=== PATIENT | male | born 1980 | race Caucasian/White ===

== ENCOUNTER 2025-04-17 08:34 | Outpatient (REF) | payer BC, SELFPAY ==
--- OUTSIDE RECORDS SUMMARY | 2019-09-20 06:41 | XMS_ITS | Continuity of Care Document ---
Author Organization [facility] Address [address] [place] [address] Phone Care Team Providers Care Account Executive Metal[employer] Name Role Phone Guero Lyman MD Unavailable Unavailable Allergies, Adverse Reactions, Alerts Substance Reaction Status Criticality theophylline Active No Information Medications Medication Instructions Dosage Effective Dates (start - stop) Status Comments metoprolol succinate ER 25 mg tablet,extended release 24 hr take 1 tablet by oral route every day 25 MG - Active Xanax 0.25 mg Tab take 1 tablet (0.25M G) by ORAL route every day as needed for anxiety 0.25 MG - Active Procedures Procedure Date Offic/outpt E&m Estab Low-mod 8 Offic/outpt E&m Estab Low-mod 7 Offic/outpt E&m Estab Low-mod 6 Routine Venipunct/finger/heel 6 Handl/convey Specmn-offic To L 16 Comp [address] Panel Bld Ct; Hg/pltlt Ct Auto/compl 16 Offic/outpt E&m Estab Low-mod 5 Routine Venipunct/finger/heel 5 Handl/convey Specmn-offic To L 15 General Health Panel Offic/outpt E&m Estab Low-mod 4 Routine Venipunct/finger/heel 4 Handl/convey Specmn-offic To L 14 General Health Panel Nov-05-2014 Offic/outpt E&m Estab Low-mod 3 Offic/outpt E&m Estab Low-mod 3 Offic/outpt E&m Estab Low-mod 2 Offic/outpt E&m Estab Low-mod 2 Offic/outpt E&m Estab Low-mod 2 Comp [address] Panel Bld Ct; Hg/pltlt Ct Auto/compl 12 Routine Venipunct/finger/heel 2 Handl/convey Specmn-offic To L 12 Offic/outpt E&m Estab Mod-hi [address]; Hg/pltlt Ct Auto/compl 11 Routine Venipunct/finger/heel 1 Handl/convey Specmn-offic To L 11 Advance Directives Directive Yes / No Effective Date File Name No Information Encounters Encounter Description Practice Location Reason(s) For Visit Diagnoses Date Provider Providers Copied on Encounter [facility], [address] [place] [address], [id number], tel:[phone] [facility] No Information 0 Nura Jack. [address] [place] [address], [id number] , . tel:[phone] [facility], [address] [place] [address], [id number], tel:[phone] [facility] Hereditary hemochromatosi s 8 Joshua Tate. [address] [place] [address], [id number] , [place]. tel:[phone] Offic/outpt E&m Estab Low-mod [facility], [address] [place] [address], [id number], tel:[phone] [facility] (chief complaint) Hereditary hemochromatosi s 8 Joshua Tate. [address] [place] [address], [id number] , . tel:[phone] Referring Provider: Babita Syed [address] [place], [address]. tel:[phone] [facility], [address] [place] [address], [id number], [place] tel:[phone] [facility] History of high blood pressureHeredi tary hemochromatosi s 8 Joshua Tate. [address] [place] [address], [id number] , [place]. tel:[phone] Offic/outpt E&m Estab Low-mod [facility], [address] [place] [address], [id number], [place] tel:[phone] [facility] (chief complaint) Hereditary hemochromatosi sHistory of high blood pressure 7 Joshua Tate. [address] [place] [address], [id number] , [place]. tel:[phone] [facility], [address] [place] [address], [id number], [place] tel:[phone] [facility] Hereditary hemochromatosi s 7 Joshua Tate. [address] [place] [address], [id number] , [place]. tel:[phone] [facility], [address] [place] [address], [id number], [place] tel:[phone] [facility] Hereditary hemochromatosi s 7 Joshua Tate. [address] [place] [address], [id number] , [place]. tel:[phone] Offic/outpt E&m Estab Lowmod [facility], [address] [place] [address], [id number], [place] tel:[phone] [facility] Hemochromatosi s (chief complaint) Hereditary hemochromatosi s 6 Joshua Tate. [address] [place] [address], [id number] , [place]. tel:[phone] [facility], [address] [place] [address], [id number], [place] tel:[phone] [facility] No Information 6 Joshua Tate. [address] [place] [address], [id number] , [place]. tel:[phone] [facility], [address] [place] [address], [id number], [place] tel:[phone] [facility] Hereditary hemochromatosi s 6 Joshua Tate. [address] [place] [address], [id number] , [place]. tel:[phone] Offic/outpt E&m Estab Low-mod [facility], [address] [place] [address], [id number], [place] tel:[phone] [facility] Hemochromatosi s (chief complaint) Hereditary hemochromatosi s 5 Joshua Tate. [address] [place] [address], [id number] , [place]. tel:[phone] Carmen Camelia, [address] [place] [address], [place], [address]. tel:[phone] [facility], [address] [place] [address], [id number], [place] tel:[phone] [facility] No Information 5 Joshua Tate. [address] [place] [address], [id number] , [place]. tel:[phone] [facility], [address] [place] [address], [id number], [place] tel:[phone] [facility] Hereditary hemochromatosi s 0 5 Joshua Tate. [address] [place] [address], [id number] , [place]. tel:[phone] [facility], [address] [place] [address], [id number], [place] tel:[phone] [facility] Hereditary hemochromatosi s Nov-0 3-201 5 Joshua Tate. [address] [place], [place], [id number] , [place]. tel:[phone] Offic/outpt E&m Estab Low-mod [facility], [address] [place] [address], [id number], [place] tel:[phone] [facility] hemochromatosi s (chief complaint) HEREDIT HEMOCHROMATOSI S Nov-0 5 4 Joshua Tate. [address] [place] [address], [id number] , [place]. tel:[phone] [facility], [address] [place] [address], [id number], [place] tel:[phone] [facility] No Information 0 5 4 Joshua Bebeto. [address] [place] [address], [id number] , [place]. tel:[phone] [facility], [address] [place] [address], [id number], [place] tel:[phone] [facility] HEREDIT HEMOCHROMATOSI S 0 201 4 Joshua Bebeto. [address] [place] [address], [id number] , [place]. tel:[phone] [facility], [address] [place] [address], [id number], [place] tel:[phone] [facility] Finding NecHEREDIT HEMOCHROMATOSI S 0 3 Joshua Bebeto. [address] [place] [address], [id number] , [place]. tel:[phone] Offic/outpt E&m Estab Low-mod [facility], [address] [place] [address], [id number], [place] tel:[phone] [facility] hemochromatosi s (chief complaint) HEREDIT HEMOCHROMATOSI S Nov0 6201 3 Joshua Bebeto. [address] [place] [address], [id number] , [place]. tel:[phone] Carmen Denise, [address] [place] [address], [id number]. tel:[phone] [facility], [address] [place] [address], [id number], [place] tel:[phone] [facility] HEREDIT HEMOCHROMATOSI S 3 Joshua Tate. [address] [place] [address], [id number] , [place]. tel:[phone] [facility], [address] [place] [address], [id number], [place] tel:[phone] [facility] HEREDIT HEMOCHROMATOSI S 3 Joshua Tate. [address] [place] [address], [id number] , [place]. tel:[phone] Offic/outpt E&m Estab Low-mod [facility], [address] [place] [address], [id number], [place] tel:[phone] [facility] hemochromatosi s (chief complaint) HEREDIT HEMOCHROMATOSI S 3 Joshua Tate. [address] [place] [address], [id number] , [place]. tel:[phone] Carmen Denise, [address] [place] [address], [place], [address]. tel:[phone] [facility], [address] [place] [address], [id number], tel:[phone] [facility] HEREDIT HEMOCHROMATOSI S 0 3 Joshua Tate. [address] [place] [address], [id number] , [place]. tel:[phone] Offic/outpt E&m Estab Lowmod [facility], [address] [place] [address], [id number], [place] tel:[phone] [facility] hemochromatosi s (chief complaint) HEREDIT HEMOCHROMATOSI S 2 Joshua Bebeto. [address] [place] [address], [id number] , [place]. tel:[phone] Carmen Denise, [address] [place] [address], [place], [address]. tel:[phone] [facility], [address] [place] [address], [id number], [place] tel:[phone] [facility] HEREDIT HEMOCHROMATOSI S 2 Joshua Tate. [address] [place] [address], [id number] , [place]. tel:[phone] Offic/outpt E&m Estab Low-mod [facility], [address] [place] [address], [id number], [place] tel:[phone] [facility] hemochromatosi s (chief complaint) No Information 2 Joshua Tate. [address] [place] [address], [id number] , [place]. tel:[phone] [facility], [address] [place] [address], [id number], [place] tel:[phone] [facility] 2 Joshua Tate. [address] [place] [address], [id number] , [place]. tel:[phone] Offic/outpt E&m Estab Lowmod [facility], [address] [place] [address], [id number], [place] tel:[phone] [facility] hemochromatosi s (chief complaint) No Information 2 Joshua Tate. [address] [place] [address], [id number] , [place]. tel:[phone] [facility], [address] [place] [address], [id number], [place] tel:[phone] [facility] No Information 2 Joshua Tate. [address] [place] [address], [id number] , [place]. tel:[phone] [facility], [address] [place] [address], [id number], [place] tel:[phone] [facility] [place] HEREDIT HEMOCHROMATOSI S Mar-0 2 Joshua Tate. [address] [place] [address], [id number] , [place]. tel:[phone] Offic/outpt E&m Estab Mod-hi 2 [facility], [address] [place] [address], [id number], [place] tel:[phone] [facility] [employer] [place] hemochromatosi s (chief complaint) HEREDIT HEMOCHROMATOSI S 1 Joshua Tate. [address] [place] [address], [id number] , [place]. tel:[phone] Carmen Denise, [address] [place] [address], [id number]. tel:[phone] [facility], [address] [place] [address], [id number], [place] tel:[phone] [facility] No Information 1 Joshua Tate. [address] [place] [address], [id number] , [place]. tel:[phone] Referring Provider: Carmen Denise, [address] [place] [address], [place], [address]. tel:[phone] [facility], [address] [place] [address], [id number], [place] tel:[phone] [facility] elevated ferritin (chief complaint) HEMOCHROMATOSI S NECAsthma W/o Status AsthmHyperlipi demiaHypertens ionRhinitis 1 Joshua Tate. [address] [place] [address], [id number] , [place]. tel:[phone] Carmen Denise, [address] [place] [address], [id number]. tel:[phone] [facility], [address] [place] [address], [id number], [place] tel:[phone] [facility] No Information 1 Joshua Tate. [address] [place] [address], [id number] , . tel:[phone] Family History Family Member Type Diagnosis Age At Onset Mother Problem (finding) hypertension Father Problem (finding) raised blood lipids Father Problem (finding) hypertension Mother Problem (finding) raised blood lipids Payers Payer name Insurance type Covered constitution party ID Kera cleaning[facility]mer [facility] [id number] Social History Type Description Quantity Date Captured Comments Sex Male Smoking Status No Information Chief Complaint And Reason For Visit No Information Reason For Referral Reason For Referral No Information Plan Of Treatment Date Type Action Status Goal Influenza vaccine. Due on due Goal Td vaccine. Due on 18 due Goal Depression screening. Due on due Goal Tdap. Due on due Referral Ordered: Refer to Genetic counseling ordered History Of Present Illness Encounter Date Complaint History Of Prese nt Illness Here for f/u vis it.Feeling well. HH HH (comments) Here for f/u vis it.Feeling well.Labs reviewed. Hemochromatosis Hemochromatosis (comments) Vaughn presents for routine follow-up.He stopped smoking, but has gained some weight.Has been very busy at work.Going [place] to [facility] for the holidays.Thinks he may have missed his last phlebotomy. Hemochromatosis Hemochromatosis (comments) Here today for follow-up visit.No new complaints.Last phlebotomy was over the summer, on a 6 month schedule. Functional Status Date Functional Assessmen t No Information Instructions Date Instruction Additional Infor ha Ferritin normal.Cont iue every 6 month phlebotomy.Target ferritin level ~ 50 ng/mL.f/u with me in 1 year. The patient verbalized an understanding of the plan. Related to Hereditary hemochromatosis Recommend he f/u wit h Dr. Rothman.May need adjustment of his metoprolol. Related to History of high blood pressure He needs to resume e very 6 month phlebotomy.Target ferritin level ~ 50 ng/mL.If today's ferrtin result is higher, he may need to do phlebotomy more frequently.f/u with me in 1 year. The patient verbalized an understanding of the plan. Related to Hereditary hemochromatosis Can continue current schedule of phlebotomy.f/u with me in 1 yr or sooner prn. Related to Hereditary hemochromatosis Doing well with ever y 6 month phlebotomy.Can continue current mgmt plan.f/u with me in 1 yr or sooner prn. Related to Hereditary hemochromatosis Assessments Type Assessment Date No Information Patient Care Teams Name Effective Dates (start - stop) Status Members No Information
--- OUTSIDE RECORDS SUMMARY | 2023-11-16 04:00 | XMS_ITS ---
Author Organization [facility] Address [address] [place] [address] Care Team Providers Care Boxcar Weigher Name Role Phone Mehnaz Carmona Primary Care Provider Encounters Encounter Location Date Provider Diagnosis [facility] [address] [place] [address] [id number] 11/16/2023 Mehnaz Carmona Plan Of Treatment Next Appt Details Provider Name:Mehnaz Carmona, 01/15/2026 10:00:00 AM, [address] [place] [address], [id number], Progress Notes * Vaughn TANGDOB:1980 (44 yo M)Acc No.[id number]:11/16/2023 Complete Physical Patient: Sumeet marylinpramodVaughn amin Provider: Kaye Carmona MD :1980 A ge:42 Y S ex:Male Date:11/16/2023 Address:[address] [id number] * Electronic signature of Nanette Carmona M.D. on 04/17/2025 at 08:55 AM EST Sign off status: Pending * Provider: Kaye Carmona MD Date: 11/16/2023 Generated for Kennethi william/Laura/eTransmitting on: 06/17/2024 08:55 AM EST
--- OUTSIDE RECORDS SUMMARY | 2024-01-02 08:00 | XMS_ITS ---
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 Name Role Phone Mehnaz Carmona Primary Care Provider Allergies Allergen (clinical drug ingredient) Drug/Non Drug Allergy documented on EMR Reaction Allergy Type Onset Date Status theophylline Unknown Drug Allergy Acti ve Results Component Value Reference Range Flag Notes *CBC With Differential/Plate let Reviewed date:01/03/2024 01:05:49 PM Interpretation: Performing Lab:[facility], [address] [place] [address], [place], Phone - [phone], Director - Ama Notes/Report: WBC 8.8 3.4-10.8 x10E3/uL RBC 5.09 4.14-5.80 x10E6/uL Hemoglobin 16.2 13.0-17.7 g/dL Hematocrit 46.4 37.5-51.0 % MCV 91 79-97 fL MCH 31.8 26.6-33.0 pg MCHC 34.9 31.5-35.7 g/dL RDW 12.6 11.6-15.4 % Platelets 323 150-450 x10E3/uL Neutrophils 60 Not Estab. % Lymphs 30 Not Estab. % Monocytes 6 Not Estab. % Eos 3 Not Estab. % Basos 1 Not Estab. % Neutrophils (Absolute) 5.3 1.4-7.0 x10E3/uL Lymphs (Absolute) 2.6 0.7-3.1 x10E3/uL Monocytes(Absolute) 0.6 0.1-0.9 x10E3/uL Eos (Absolute) 0.3 0.0-0.4 x10E3/uL Baso (Absolute) 0.1 0.0-0.2 x10E3/uL Immature Granulocytes 0 Not Estab. % Immature Grans (Abs) 0.0 0.0-0.1 x10E3/uL *Lipid Panel Reviewed date:01/03/2024 01:06:07 PM Interpretation: Performing Lab:[facility], [address] [place] [address], Phone - [phone], Director - MDNenadry Notes/Report: Cholesterol, Total 234 100-199 mg/dL H Triglycerides 135 0-149 mg/dL HDL Cholesterol 57 >39 mg/dL VLDL Cholesterol Jame 24 5-40 mg/dL LDL Chol Calc ([facility]) 153 0-99 mg/dL H *Comp. Metabolic Panel (14) Reviewed date:01/03/2024 01:06:32 PM Interpretation: Performing Lab:[facility] [place], [address] [place] [address], Phone - [phone], Director - WAWiliamy Notes/Report: Glucose 95 70-99 mg/dL BUN 16 6-24 mg/dL Creatinine 0.68 0.76-1.27 mg/dL L eGFR 120 >59 mL/min/1.73 BUN/Creatinine Ratio 24 9-20 H Sodium 142 134-144 mmol/L Potassium 4.3 3.5-5.2 mmol/L Chloride 105 96-106 mmol/L Carbon Dioxide, Total 19 20-29 mmol/L L Calcium 10.6 8.7-10.2 mg/dL H Verified by repeat analysis Protein, Total 7.7 6.0-8.5 g/dL Albumin 5.1 4.1-5.1 g/dL Globulin, Total 2.6 1.5-4.5 g/dL Bilirubin, Total 0.4 0.0-1.2 mg/dL Alkaline Phosphatase 106 44-121 IU/L AST (SGOT) 32 0-40 IU/L ALT (SGPT) 82 0-44 IU/L H *Hemoglobin A1c Reviewed date:01/03/2024 01:05:38 PM Interpretation: Performing Lab:[facility], [address] [place] [address], Phone - [phone], Director - WAWiliamy Notes/Report: Hemoglobin A1c 5.8 4.8-5.6 % H . 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 Alcohol: socially Type: , Frequenc y: ,Years: , Determination: Exercise: yes Caffeine: yes frequency: 3 cup s/day Marital Status: Children: sons: 1 Problems Problem Type SNOMED Code ICD Code Onset Dates Problem Status W/U Status Risk Notes Problem Obstructive sleep apnea syndrome (02082553) JOVAN (obstructive sleep apnea) (G47.33) Active confirmed Problem alanine aminotransferase above reference range (finding) (686971469) Elevated ALT measurement (R74.01) Active confirmed Problem Prediabetes (111970824) Prediabetes (R73.03) Active confirmed Vital Signs Blood pressure systolic 130 mm Hg 01/02/20 24 Blood pressure diastolic 78 mm Hg 024 Height 66 in 01/02/2024 Weight 209 lbs 01/02/2024 BMI 33.73 kg/m2 01/02/2024 PULSE OX: 98A.P Encounters Encounter Location Date Provider Diagnosis [facility] summer [address] [phone] 01/02/2024 Mehnaz Carmona Exercise-induced ast hma J45.990 ; Encounter for general adult medical examination with abnormal findings Z00.01 ; Atypical chest pain R07.89 ; Trigeminy R00.8 ; Snoring R06.83 ; Urinary retention R33.9 ; Hereditary hemochromatosis E83.110 ; Non-seasonal allergic rhinitis due to pollen J30.1 ; Liver cyst K76.89 ; Mixed hyperlipidemia E78.2 ; Erectile disorder due to medical condition in male N52.1 ; KIKI (generalized anxiety disorder) F41.1 ; Sacroiliitis M46.1 ; Obesity (BMI 30-39.9) E66.9 ; Carpal tunnel syndrome on both sides G56.03 ; JOVAN (obstructive sleep apnea) G47.33 ; Elevated ALT measurement R74.01 and Prediabetes R73.03 Assessments Encounter Date Diagnosis (ICD Code) Assessment Notes Treatment Notes Treatment Clinical Notes Section Notes 01/02/2024 Exercise-induced asthma (ICD-10 - J45.990) No lomger taking nebs 01/02/2024 Encounter for general adult medical examination with abnormal findings (ICD-10 - Z00.01) 01/02/2024 Atypical chest pain (ICD-10 - R07.89) EKG done, ordered stress test, ECHO-seen by all normal 01/02/2024 Trigeminy (ICD-10 - R00.8) 01/02/2024 Snoring (ICD-10 - R06.83) referral to sleep studies -received CPAP machine but could not tolerate it. Seen again by , does not want to do CPAP 01/02/2024 Urinary retention (ICD-10 - R33.9) referal to -was seen received Flomax but gave him tachycardia 01/02/2024 Hereditary hemochromatosis (ICD-10 - E83.110) will refer to [place] 01/02/2024 Non-seasonal allergic rhinitis due to pollen (ICD-10 - J30.1) 01/02/2024 Liver cyst (ICD-10 - K76.89) 01/02/2024 Mixed hyperlipidemia (ICD-10 - E78.2) 12/2023 LDL 153 risk 1.4 01/02/2024 Erectile disorder due to medical condition in male (ICD-10 - N52.1) 01/02/2024 KIKI (generalized anxiety disorder) (ICD-10 - F41.1) 01/02/2024 Sacroiliitis (ICD-10 - M46.1) seeening , injection in back q 6 months-- in neck q 12 months 01/02/2024 Obesity (BMI 30-39.9) (ICD-10 - E66.9) 01/02/2024 Carpal tunnel syndrome on both sides (ICD-10 - G56.03) referal hand surgery--no CPT as per surgery, probably coming from cervical area 01/02/2024 JOVAN (obstructive sleep apnea) (ICD-10 - G47.33) not on CPAP 01/02/2024 Elevated ALT measurement (ICD-10 - R74.01) 12/2023 ALT 82 01/02/2024 Prediabetes (ICD-10 - R73.03) 12/2023 a1c 5.8 01/02/2024 Other Tdap 2022 NEXT hem Plan Of Treatment Medication Medication Name Sig Start Date Stop Date Notes Bystolic 10 mg tablet 1 tab(s) orally once a day FLUoxetine Hydrochloride 20 mg capsule TAKE 1 CAPSULE BY MOUTH EVERY DAY sildenafil 100 mg tablet 1 tab(s) orally once a day ZyrTEC 10 mg tablet 1 tab(s) orally once a day Treatment Notes Assessment Notes Exercise-induced asthma No lomger taking nebs Atypical chest pain EKG done, ordered st ress test, ECHO-seen by all normal Snoring referral to sleep [facility] -received CPAP machine but could not tolerate it. Seen again by , does not want to do CPAP Urinary retention referal to ar-was seen received Flomax but gave him tachycardia Hereditary hemochromatosis will refer to [place] Mixed hyperlipidemia 12/2023 LDL 153 risk 1.4 Sacroiliitis seeening , injection in back q 6 months-- in neck q 12 months Carpal tunnel syndrome on both sides ref eral hand surgery--no CPT as per surgery, probably coming from cervical area JOVAN (obstructive sleep apnea) not on CPA P Elevated ALT measurement 12/2023 ALT 82 Prediabetes 12/2023 a1c 5.8 Other Tdap 2022 NEXT hem Next Appt Details Follow Up: prn, Reason: Provider Name:Mehnaz Carmona, 01/15/2026 10:00:00 AM, [address] [place] [address], [phone], History and Physical Notes * HPI (History of Present Illness) Category Sub-Category Detail Notes Category Not es Depression PHQ2 Little interest or pleasure in doing things: No Feeling down depressed or hopeless: No Follow-up 43 y/o male with PMH of Hereditary Hemochromatosis, HTN, HLD-chronic low back came for annual visit. Following issues were discussed today:- / CARPEL TUNNEL SYNDROME - B/L : On his last visit , He complained of occasional pain in his both wrists and arms along with tingling and numbness. He finds it difficult to open the bottle cap, using screw lokie driver too. He had nerve conduction done which seems to be normal as per patient. His numbness now has gone but still have pain. / HEMOCHROMATOSIS: He has history of Hereditary hemochromatosis. He has had complications secondary to that. He was currently not having regular phelobotomies due to COVID. He wants a referal to heavy repairer. / CHRONIC LOW BACK PAIN: Patient has had surgery for his back. He goes for L5/S1 RFA every 6 months. Lower back pain is currently stable. / VENTRICULAR TRIGEMINY: He has history of palpitations and dizziness and was diagnosed to have ventricular trigeminy. He is being treated with Bystolic. He denies any palpitation , dizziness , SOB and chest pain. / JOVAN: He had sleep study and required CPAP, but he has not been using it as he finds it difficult. He was given mouth guard but has not been using. He dont want to use any mask for CPAP but still have episodes of apnea and snoring. / ERECTILE DYSFUNCTION: He had problems with erectile dysfunction and he takes Sildenafil as needed with which he is fine. / URINARY RETENTION: Previously he complained of urinary retention. He was given medication but he left the medication due to palpitation and now dont have any complains of urinary urgency or retention. / PREVENTIVE: Tetanus: 11/11/2022 There are no other aggravating or relieving factors, or symptoms referrable to any other system. Physical Examination Category Sub-Category Detail Notes Section Note s HEENT Head: normocephalic, no scalp lesi ons Eyes: unremarkable Mouth: moist mucus membrane s Face: normal EXTREMITIES Edema: none Cyanosis: no Clubbing: no Pulses: 2+ bilateral Skin: normal Upper Extremities: normal Lower Extremities: normal HEART Rhythm: regular Heart sounds: normal S1S2 Rate: regular ABDOMEN General: soft Tenderness: none Bowel sounds: normoactive NEUROLOGICAL Orientation: alert and oriented x 3 Cognition: normal MUSCULOSKELETAL Wrist: unremarkable Knee: unremarkable Arm: unremarkable SKIN General: warm, moist Rash: none GENERAL General Appearence: no acute distress, ap pears stated age Mental Status: alert and oriented LUNGS Auscultation: CTA bilaterally, no wheezin g/rhonchi/rales Oxygen use: none EYES Conjunctiva: unremarkable Cornea: unremarkable Progress Notes * Vaughn TANGB:1980 (44 yo M)Acc No.[id number]:01/02/2024 Complete Physical Patient: Vaughn Alfred Provider: Kaye Carmona MD :1980 A ge:43 Y S ex:Male Date:01/02/2024 [address] [place] [address] [id number] Subjective: * Chief Complaints: * A nnual * HPI: F ollow-up: 43 y/o male with PMH of Hereditary Hemochromatosis, HTN, HLD-chronic low back came for annual visit. Following issues were discussed today:- / CARPEL TUNNEL SYNDROME - B/L : On his last visit , He complained of occasional pain in his both wrists and arms along with tingling and numbness. He finds it difficult to open the bottle cap, using screw lokie driver too. He had nerve conduction done which seems to be normal as per patient. His numbness now has gone but still have pain. / HEMOCHROMATOSIS: He has history of Hereditary hemochromatosis. He has had complications secondary to that. He was currently not having regular phelobotomies due to COVID. He wants a referal to heavy repairer. / CHRONIC LOW BACK PAIN: Patient has had surgery for his back. He goes for L5/S1 RFA every 6 months. Lower back pain is currently stable. / VENTRICULAR TRIGEMINY: He has history of palpitations and dizziness and was diagnosed to have ventricular trigeminy. He is being treated with Bystolic. He denies any palpitation , dizziness , SOB and chest pain. / JOVAN: He had sleep study and required CPAP, but he has not been using it as he finds it difficult. He was given mouth guard but has not been using. He dont want to use any mask for CPAP but still have episodes of apnea and snoring. / ERECTILE DYSFUNCTION: He had problems with erectile dysfunction and he takes Sildenafil as needed with which he is fine. / URINARY RETENTION: Previously he complained of urinary retention. He was given medication but he left the medication due to palpitation and now dont have any complains of urinary urgency or retention. / PREVENTIVE: Tetanus: 11/11/2022 There are no other aggravating or relieving factors, or symptoms referrable to any other system. D epression: PHQ2 L ittle interest or pleasure in doing things N o,?Feeling down depressed or hopeless N o. * ROS: A LLERGY: no A ngioedema. n o C ough. n o E ar Symptoms. n o P ost-nasal Drip. n o R dannielle. C ONSTITUTIONAL: no F ever. n o W eight Loss. n o W eight Gain. C ARDIOLOGY: no C hest Pain. n o S hortness of Breath. n o?Palpitations. n o D izziness. n o L eg Edema. n o F atigue. ? E NDOCRINOLOGY: no P olyuria. n o P olydypsia. n o P olyphagia. n o W eight Loss. n o W eight Gain. n o F atigue. E NT: no R hinorrhea. n o S ore Throat. n o H oarseness. n o C ough. G ASTROENTEROLOGY: no A bdominal Pain. n o H eartburn. n o D ysphagia. n o D iarrhea. n o C onstipation. M USCULOSKELETAL: Joint Pain B /L wrist and forearm p ain along with numbness, tingling i n hands,. n o J oint Stiffness. n o J oint Swelling. n o C arpal Tunnel Syndrome.? N EUROLOGY: no H eadache. n o V isual Changes. n o D izziness. n o M gina Loss. n o S eizures. O PTHALMOLOGY: no B lurred Vision. n o C hange in Vision. n o?Eye Redness. n o E ye Irritation. n o E ye Drainage. P SYCHOLOGY: no D epression. n o A nxiety. n o M farida.?Sleep Disturbances a pnea and snoring. R ESPIRATORY: no S hortness of Breath. n o C hest Congestion.?no C hest Pain. n o O rthopnea. U ROLOGY: no D ysuria. n o U rinary Frequency. n o U rinary Urgency. n o B lood in Urine. n o U rinary Incontinence. n o N octuria. * Medical History: Hereditary hemochromatosis Allergic rhinitis Hypertension Exercise induced asthma Chronic low back pain Vitamin D deficiency Urinary retention Lumbar fracture Ventricular trigeminy Hyperlipidemia Hepatic cyst * Surgical History: Tonsillectomy 1987 * Hospitalization/Major Diagno stic Procedure: * Family History: F ather: alive. M other: alive. 1 brother(s) . . HTN in brother. HTN, prediabetes in the mother. Emphysema in father. CAD in uncle. * Social History: A lcohol: socially, Type: , Frequency: ,Years: , Determination:. Marital Status: . Children: sons: 1. 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 Exercise: yes. Caffeine: yes, frequency: 3 cups/day. * Medications: T akingBystolic 10 mg tablet 1 tab(s) orally once a day FLUoxetine Hydrochloride 20 mg capsule TAKE 1 CAPSULE BY MOUTH EVERY DAY sildenafil 100 mg tablet 1 tab(s) orally once a day ZyrTEC 10 mg tablet 1 tab(s) orally once a day Medication List reviewed and reconciled with the patientTaking Bystolic 10 mg tablet 1 tab(s) orally once a day Taking FLUoxetine Hydrochloride 20 mg capsule TAKE 1 CAPSULE BY MOUTH EVERY DAY Taking sildenafil 100 mg tablet 1 tab(s) orally once a day Taking ZyrTEC 10 mg tablet 1 tab(s) orally once a day Medication List reviewed and reconciled with the patient * Allergies: t heophylline Objective: * Vitals: R R:16/min, HR:71/min, BP:130/78mm Hg, Ht: 66 in, Wt:209lbs, BMI:33.73Index. PULSE OX: 98 A.P. * Physical Examination: G ENERAL: General Appearence: n o acute distress, appears stated age.?Mental Status: a lert and oriented. S KIN: General: w arm, moist. R dannielle: n one. E YES: Conjunctiva: u nremarkable. C ornea: u nremarkable.? H EENT: Head: n ormocephalic, no scalp lesions. F jean pierre: n ormal. E yes: u nremarkable. M outh: m oist mucus membranes. H EART: Rate: r egular. R hythm: r egular. H eart sounds: n ormal S1S2. L UNGS: Auscultation: C TA bilaterally, no wheezing/rhonchi/rales.?Oxygen use: n one. A BDOMEN: General: s oft. B owel sounds: n ormoactive. T enderness: n one. E XTREMITIES: Upper Extremities: n ormal. L ower Extremities: n ormal. E dayne: n one. S kin: n ormal. P ulses: 2 + bilateral. C lubbing:?no. C yanosis: n o. M USCULOSKELETAL: Wrist: u nremarkable. A rm: u nremarkable. K nee: u nremarkable. N EUROLOGICAL: Orientation: a lert and oriented x 3. C ognition: n ormal. Assessment: * Assessment: 1. E ncounter for general adult medical examination with abnormal findings - Z00.01 (Primary)? 2. E xercise-induced asthma - J45.990 3 . A typical chest pain - R07.89 4 . T rigeminy - R00.8 5 . S noring - R06.83 6. U rinary retention - R33.9 7 . H ereditary hemochromatosis - E83.110 8 . N on-seasonal allergic rhinitis due to pollen - J30.1 ?9. L iver cyst - K76.89 1 0. M ixed hyperlipidemia - E78.2 11. E rectile disorder due to medical condition in male - N52.1 1 2. G AD (generalized anxiety disorder) - F41.1 1 3. S acroiliitis - M46.1 ?14. O besity (BMI 30-39.9) - E66.9 1 5. C arpal tunnel syndrome on both sides - G56.03 1 6. O SA (obstructive sleep apnea) - G47.33 1 7. E levated ALT measurement - R74.01 1 8. P rediabetes - R73.03 ? Plan: * Treatment: Value Reference Range W BC 8.8 3.4-10.8 - x10E3/uL * R BC 5.09 4.14-5.80 - x10E6/uL * H emoglobin 16.2 13.0-17.7 - g/dL * H ematocrit 46.4 37.5-51.0 - % * M CV 91 79-97 - fL * M CH 31.8 26.6-33.0 - pg * M CHC 34.9 31.5-35.7 - g/dL * N eutrophils 60 Not Estab. - % * L ymphs 30 Not Estab. - % * M onocytes 6 Not Estab. - % * E os 3 Not Estab. - % * B asos 1 Not Estab. - % * P latelets 323 150-450 - x10E3/uL * N eutrophils (Absolute) 5.3 1.4-7.0 - x10E3/uL * L ymphs (Absolute) 2.6 0.7-3.1 - x10E3/uL * M onocytes(Absolute) 0.6 0.1-0.9 - x10E3/uL * E os (Absolute) 0.3 0.0-0.4 - x10E3/uL * B aso (Absolute) 0.1 0.0-0.2 - x10E3/uL * R DW 12.6 11.6-15.4 - % * I mmature Grans (Abs) 0.0 0.0-0.1 - x10E3/uL * I mmature Granulocytes 0 Not Estab. - % ?LAB: *Comp. Metabolic Panel (14) (Collection Date & Time - 01/02/2024 02:07 PM)* Value Reference Range C alcium, Serum 10.6 H 8.7-10.2 - mg/dL * G lucose, Serum 95 70-99 - mg/dL * B UN 16 6-24 - mg/dL * P rotein, Total, Serum 7.7 6.0-8.5 - g/dL * A lbumin, Serum 5.1 4.1-5.1 - g/dL * B ilirubin, Total 0.4 0.0-1.2 - mg/dL * A lkaline Phosphatase, Serum 106 44-121 - IU/L * A ST (SGOT) 32 0-40 - IU/L * P otassium, Serum 4.3 3.5-5.2 - mmol/L * S odium, Serum 142 134-144 - mmol/L * C hloride, Serum 105 96-106 - mmol/L * C reatinine, Serum 0.68 L 0.76-1.27 - mg/dL * A LT (SGPT) 82 H 0-44 - IU/L * C arbon Dioxide, Total 19 L 20-29 - mmol/L * B UN/Creatinine Ratio 24 H 9-20 - * G lobulin, Total 2.6 1.5-4.5 - g/dL * e GFR 120 >59 - mL/min/1.73 2.?Exercise-induced asthma? Notes: No lomger taking nebs??3.?Atypical chest pain? Notes:EKG done, ordered stress test, ECHO-seen by all normal?? 4.?Trigeminy? Continue Bystolic tablet, 10 mg, 1 tab(s), orally, once a day.??5.?Snoring? Notes:referral to sleep studies -received CPAP machine but could not tolerate it. Seen again by , does not want to do CPAP??6.?Urinary retention? Notes:referal to -was seen received Flomax but gave him tachycardia?? 7.?Hereditary hemochromatosis? Notes:will refer to [place] ??8.?Mixed hyperlipidemia? Notes: ?12/2023 LDL 153 risk 1.4??9.?Erectile disorder due to medical condition in male? Continue sildenafil tablet, 100 mg, 1 tab(s), orally, once a day.??10.?KIKI (generalized anxiety disorder)? Continue FLUoxetine Hydrochloride capsule, 20 mg, TAKE 1 CAPSULE BY MOUTH EVERY DAY.??11.?Sacroiliitis? Notes: ?seeening , injection in back q 6 months-- in neck q 12 months??12.?Obesity (BMI 30-39.9)?LAB: *Lipid Panel (Collection Date & Time - 01/02/2024 02:07 PM)* Value Reference Range C holesterol, Total 234 H 100-199 - mg/dL * T riglycerides 135 0-149 - mg/dL * H DL Cholesterol 57 >39 - mg/dL * V LDL Cholesterol Jame 24 5-40 - mg/dL * L DL Chol Calc ([facility]) 153 H 0-99 - mg/dL ?LAB: *Hemoglobin A1c (Collection Date & Time - 01/02/2024 02:07 PM)* Value Reference Range H emoglobin A1c 5.8 H 4.8-5.6 - % 13.?Carpal tunnel syndrome on both sides? Notes: ?referal hand surgery--no CPT as per surgery, probably coming from cervical area? 14.?JOVAN (obstructive sleep apnea)? Notes: ?not on CPAP??15.?Elevated ALT measurement? Notes: ?12/2023 ALT 82??16.?Prediabetes? Notes: ?12/2023 a1c 5.8??17.?Others? Continue ZyrTEC tablet, 10 mg, 1 tab(s), orally, once a day.?? Notes: Tdap 2022 NEXT? hem?? * Procedure Codes: * Preventive Medicine: Counseling: S moking P t has never smoked 0 01/02/2024. C are goal follow up plan: B [place] management provided Y es. D iet X . Immunizations: T etnus 2 023. * Follow Up: p rn Billing Information: * Visit Code: 88401 PREV VISIT, EST, AGE 40-64. 95591 OFFICE/OUTPATIENT VISIT, EST. Modifiers: 25 * Electronic signature of Nanette Carmoan M.D. on 04/17/2025 at 08:54 AM EST Sign off status: Pending * Provider: Kaye Carmona MD Date: 0 01/02/2024 Generated for Glenny thomas/Laura/eTransmitting on: 1 06/17/2024 08:54 AM EST
--- OUTSIDE RECORDS SUMMARY | 2025-01-08 05:00 | XMS_ITS ---
Author Organization [facility] Address [address] [place] [id number] Care Team Providers Care Corporate Job Titles Name Role Phone Mehnaz Carmona Primary Care Provider Allergies Allergen (clinical drug ingredient) Drug/Non Drug Allergy documented on EMR Reaction Allergy Type Onset Date Status theophylline Unknown Drug Allergy Acti ve Results Component Value Reference Range Flag Notes *Ferritin, Serum Reviewed date:01/09/2025 08:30:56 AM Interpretation: Performing Lab:[facility], [address] [place] [address], Phone - [phone], Director - MDJodry Notes/Report: Ferritin 558 30-400 ng/mL H *CBC With Differential/Plate let Reviewed date:01/09/2025 08:30:56 AM Interpretation: Performing Lab:[facility], [address] [place] [address], Phone - [phone], Director - MDJodry Notes/Report: WBC 6.3 3.4-10.8 x10E3/uL RBC 4.73 4.14-5.80 x10E6/uL Hemoglobin 15.0 13.0-17.7 g/dL Hematocrit 43.5 37.5-51.0 % MCV 92 79-97 fL MCH 31.7 26.6-33.0 pg MCHC 34.5 31.5-35.7 g/dL RDW 12.8 11.6-15.4 % Platelets 280 150-450 x10E3/uL Neutrophils 54 Not Estab. % Lymphs 34 Not Estab. % Monocytes 7 Not Estab. % Eos 4 Not Estab. % Basos 1 Not Estab. % Neutrophils (Absolute) 3.3 1.4-7.0 x10E3/uL Lymphs (Absolute) 2.1 0.7-3.1 x10E3/uL Monocytes(Absolute) 0.5 0.1-0.9 x10E3/uL Eos (Absolute) 0.3 0.0-0.4 x10E3/uL Baso (Absolute) 0.1 0.0-0.2 x10E3/uL Immature Granulocytes 0 Not Estab. % Immature Grans (Abs) 0.0 0.0-0.1 x10E3/uL *Lipid Panel Reviewed date:01/09/2025 08:30:56 AM Interpretation: Performing Lab:[facility], [facility], Phone - [phone], Director - MDJodry Notes/Report: Cholesterol, Total 214 100-199 mg/dL H Triglycerides 156 0-149 mg/dL H HDL Cholesterol 47 >39 mg/dL VLDL Cholesterol Jame 28 5-40 mg/dL LDL Chol Calc (NIH) 139 0-99 mg/dL H *Comp. Metabolic Panel (14) Reviewed date:01/09/2025 08:30:56 AM Interpretation: Performing Lab:[facility], [facility], Phone - [phone], Director - MDJodry Notes/Report: Glucose 106 70-99 mg/dL H BUN 10 6-24 mg/dL Creatinine 0.86 0.76-1.27 mg/dL eGFR 111 >59 mL/min/1.73 BUN/Creatinine Ratio 12 9-20 Sodium 140 134-144 mmol/L Potassium 4.2 3.5-5.2 mmol/L Chloride 105 96-106 mmol/L Carbon Dioxide, Total 20 20-29 mmol/L Calcium 9.7 8.7-10.2 mg/dL Protein, Total 7.0 6.0-8.5 g/dL Albumin 4.7 4.1-5.1 g/dL Globulin, Total 2.3 1.5-4.5 g/dL Bilirubin, Total 0.4 0.0-1.2 mg/dL Alkaline Phosphatase 96 44-121 IU/L AST (SGOT) 34 0-40 IU/L ALT (SGPT) 74 0-44 IU/L H *Hemoglobin A1c Reviewed date:01/09/2025 08:30:56 AM Interpretation: Performing Lab:[facility], [facility], Phone - [phone], Director - Ama Notes/Report: Hemoglobin A1c 5.6 4.8-5.6 % . Prediabetes: 5.7 - 6.4 Diabetes: >6.4 Glycemic control for adults with diabetes: <7.0 REASON FOR VISIT CPE Medications Medication SIG (Take, Route, Frequency, Duration) Notes Start Date End Date Status sildenafil 100 mg tablet 1 tab(s) orally once a day 01/08/2025 Active Albuterol (Eqv-ProAir HFA) 90 mcg/inh aerosol 2 INH inhaled every 6 hours 01/08/2025 Active FLUoxetine Hydrochloride 20 mg capsule TAKE 1 CAPSULE BY MOUTH EVERY DAY 01/08/2025 Active Sudafed 30 mg tablet 1 tab(s) orally reena ry 6 hours; Duration: 14 days 07/05/2024 Not-Taking Bonjesta 20 mg-20 mg tablet, extended release 1 tab(s) orally once a day (at bedtime); Duration: 30 days 12/05/2024 Not-Taking Bystolic 10 mg tablet 1 tab(s) orally on a day 01/08/2025 Active FLUoxetine Hydrochloride 40 mg capsule 1 caps orally once a day; Duration: 90 days Active Social History Social History Additional Details Category Social Info Options Details Social History 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 Travel ouside [place]: no Alcohol: socially Sexually active: yes Exercise: yes Caffeine: yes frequency: 3 cup s/day Marital Status: Children: sons: 1, pr egnant with second baby Pets: dog, guine pig, chicken, sheep Checked Cholesterol levels yes Seat belt usage Yes Vital Signs Blood pressure systolic 110 mm Hg 01/09/20 25 Blood pressure diastolic 82 mm Hg 025 Height 66 in 01/08/2025 Weight 213.4 lbs 01/08/2025 BMI 34.44 kg/m2 01/08/2025 O2:96LO Encounters Encounter Location Date Provider Diagnosis [facility] [address] [id number] 01/08/2025 Mehnaz Carmona Exercise-induced ast hma J45.990 ; Encounter for annual general medical examination with abnormal findings in adult Z00.01 ; Atypical chest pain R07.89 ; [...] Treatment Notes Treatment Clinical Notes Section Notes 01/08/2025 Exercise-induced asthma (ICD-10 - J45.990) 01/08/2025 Encounter for annual general medical examination with abnormal findings in adult (ICD-10 - Z00.01) 01/08/2025 Atypical chest pain (ICD-10 - R07.89) EKG done, ordered stress test, ECHO-seen by all normal 01/08/2025 Trigeminy (ICD-10 - R00.8) 01/08/2025 Snoring (ICD-10 - R06.83) referral to sleep studies -received CPAP machine but could not tolerate it. Seen again by , does not want to do CPAP 01/08/2025 Urinary retention (ICD-10 - R33.9) referal to as seen received Flomax but gave him tachycardia: stopped taking 01/08/2025 Hereditary hemochromatosis (ICD-10 - E83.110) referred to Aquilino Sousa, he didn't make appointment brandy [place] 558 01/08/2025 Non-seasonal allergic rhinitis due to pollen (ICD-10 - J30.1) 01/08/2025 Liver cyst (ICD-10 - K76.89) 01/08/2025 Mixed hyperlipidemia (ICD-10 - E78.2) 12/2023 LDL 153 risk 1.4 12/2024 LDL 139 01/08/2025 Erectile disorder due to medical condition in male (ICD-10 - N52.1) taking Rarely 01/08/2025 KIKI (generalized anxiety disorder) (ICD-10 - F41.1) 01/08/2025 Sacroiliitis (ICD-10 - M46.1) seeening , injection in back q 6 months-- in neck q 12 months 01/08/2025 Obesity (BMI 30-39.9) (ICD-10 - E66.9) 01/08/2025 Carpal tunnel syndrome on both sides (ICD-10 - G56.03) referal hand surgery--no CPT as per surgery, probably coming from cervical area 01/08/2025 JOVAN (obstructive sleep apnea) (ICD-10 - G47.33) not on CPAP 01/08/2025 Elevated ALT measurement (ICD-10 - R74.01) 12/2023 ALT 82 12/2024 ALT 74 01/08/2025 Prediabetes (ICD-10 - R73.03) 12/2023 a1c 5.8 12/2024 resolved a1c 5.6 01/08/2025 Other Tdap 2022 NEXT hem Plan Of Treatment Medication Medication Name Sig Start Date Stop Date Notes ZyrTEC 10 mg tablet 1 tab(s) orally once a day 01/08/2025 sildenafil 100 mg tablet 1 tab(s) orally once a day 2024 Breo Ellipta 100 mcg-25 mcg/ inh powder 1 inh inhaled once a day; Duration: 30 days 01/08/2025 Albuterol (Eqv-ProAir HFA) 9 0 mcg/inh aerosol 2 INH inhaled every 6 hours 01/08/2025 Flonase 50 mcg/inh spray 1 spray(s) in e ach nostril once a day 01/08/2025 FLUoxetine Hydrochloride 20 mg capsule TAKE 1 CAPSULE BY MOUTH EVERY DAY 01/08/2025 Bystolic 10 mg tablet 1 tab(s) orally once a day Treatment Notes Assessment Notes Atypical chest pain EKG done, ordered stress test, ECHO-seen by all normal Snoring referral to sleep [facility] -received CPAP machine but could not tolerate it. Seen again by , does not want to do CPAP Urinary retention referal to -was seen received Flomax but gave him tachycardia: stopped taking Hereditary hemochromatosis referred to Aquilino Sousa, he didn't make appointment feritin high 558 Mixed hyperlipidemia 12/2023 LDL 153 risk 1.4 12/2024 LDL 139 Erectile disorder due to med ical condition in male taking Rarely Sacroiliitis seeening , injection in back q 6 months-- in neck q 12 months Carpal tunnel syndrome on both sides ref eral hand surgery--no CPT as per surgery, probably coming from cervical area JOVAN (obstructive sleep apnea) not on CPA P Elevated ALT measurement 12/2023 ALT 82 12/2024 ALT 74 Prediabetes 12/2023 a1c 5.8 12/2024 resolved a1c 5.6 Other Tdap 2022 NEXT hem Next Appt Details Follow Up: prn, Reason: Provider Name:Mehnaz Carmona, 01/15/2026 10:00:00 AM, [address] [facility], [place] [address], [place], [place], [phone], History and Physical Notes * HPI (History of Present Illness) Category Sub-Category Detail Notes Category Not es Depression PHQ2 Little interest or pleasure in doing things: No Feeling down depressed or hopeless: No Follow-up 44 y/o male with PMH of Hereditary Hemochromatosis, HTN, HLD-chronic low back came for annual visit. Following issues were discussed today:- / HEMOCHROMATOSIS: He has history of Hereditary hemochromatosis. He has had complications secondary to that. Referral to hemotologist was made but patient could not book an appointment, will try again.He does not have fatigue, no abd pain, no palpitations. Pt reinforced on avoiding iron and vitamin c rich food and to avoid seafood. / PREDIABETES: Educated regarding carb controlled diet. HbA1c in 2023: 5.8 / CARPEL TUNNEL SYNDROME - Resolved, No numbness, No Pain. B/L : He complained of occasional pain in his both wrists and arms along with tingling and numbness. 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 He had nerve conduction done which seems to be normal as per patient. / JOINT PAIN: NECK PAIN AND CHRONIC LOW BACK PAIN- Patient has had surgery for his back. He goes for L5/S1 RFA every 6 months. Lower back pain is currently stable. He also gets injections in his neck for neck pain. / VENTRICULAR TRIGEMINY: No palpitations. He has history of palpitations and dizziness [...] of apnea and snoring. / ERECTILE DYSFUNCTION: Stable, uses Sildenafil very rarely now. He had problems with erectile dysfunction and he takes Sildenafil as needed with which he is fine. / URINARY RETENTION: Previously he complained of urinary retention. He was given medication but he left the medication due to palpitation and now dont have any complains of urinary urgency or retention. / PREVENTIVE: Tetanus: 11/11/2022 SMOKING: smoked very long time ago / There are no other aggravating or relieving factors, or symptoms referrable to any other system. Physical Examination Category Sub-Category Detail Notes Section Note s HEENT Head: normocephalic, no scalp lesi ons Eyes: unremarkable Mouth: moist mucus membrane s Face: normal EXTREMITIES Edema: none Cyanosis: no Clubbing: no Pulses: 2+ bilateral Skin: normal Upper Extremities: normal Lower Extremities: normal BACK Spine: unremarkable ROM: FROM without pain HEART Rhythm: regular Heart sounds: normal S1S2 [...] unremarkable Cornea: unremarkable Progress Notes * Vaughn TANGDOB:1980 (44 yo M)Acc No.[id number]:01/08/2025 Complete Physical Patient: Vaughn Alfred Provider: Kaye Carmona MD :1980 A ge:44 Y S ex:Male Date:01/08/2025 Address:[address] [place], [place] [id number] Subjective: * Chief Complaints: * C PE * HPI: F ollow-up: 44 y/o male with PMH of Hereditary Hemochromatosis, HTN, HLD-chronic low back came for annual visit. Following issues were discussed today:- / HEMOCHROMATOSIS: He has history of Hereditary hemochromatosis. He has had complications secondary to that. Referral to hemotologist was made but patient could not book an appointment, will try again.He does not have fatigue, no abd pain, no palpitations. Pt reinforced on avoiding iron and vitamin c rich food and to avoid seafood. / PREDIABETES: Educated regarding carb controlled diet. HbA1c in 2023: 5.8 / CARPEL TUNNEL SYNDROME - Resolved, No numbness, No Pain. B/L : He complained of occasional pain in his both wrists and arms along with tingling and numbness. 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 He had nerve conduction done which seems to be normal as per patient. / JOINT PAIN: NECK PAIN AND CHRONIC LOW BACK PAIN- Patient has had surgery for his back. He goes for L5/S1 RFA every 6 months. Lower back pain is currently stable. He also gets injections in his neck for neck pain. / VENTRICULAR TRIGEMINY: No palpitations. He has history of palpitations and dizziness [...] of apnea and snoring. / ERECTILE DYSFUNCTION: Stable, uses Sildenafil very rarely now. Dona villatoro had problems with erectile dysfunction and he takes Sildenafil as needed with which he is fine. / URINARY RETENTION: Previously he complained of urinary retention. He was given medication but he left the medication due to palpitation and now dont have any complains of urinary urgency or retention. / PREVENTIVE: Tetanus: 11/11/2022 SMOKING: smoked very long time ago / There are no other aggravating or relieving [...] Pain. n o S hortness of Breath. P alpitations o ccasionally, f eels heart racing. n o D izziness. n o L eg Edema. n o F atigue. E NDOCRINOLOGY: no P olyuria. n o P olydypsia. n o P olyphagia. n o W eight Loss. n o W eight Gain. n o F atigue. G ASTROENTEROLOGY: no A bdominal Pain. n o H eartburn. n o D ysphagia. n o D iarrhea. n o C onstipation. M USCULOSKELETAL: Joint Pain n one. n o J oint Stiffness. n o?Joint Swelling. n o C arpal Tunnel Syndrome. N EUROLOGY: no H eadache. n o [...] the mother. Emphysema in father. CAD in uncle Maternal grandfather had Hereditary Hemochromatosis. * Social History: S moking Status / Tobacco: no . C hecked Cholesterol levels: yes. Seat belt usage: Yes. Alcohol: socially. Marital Status: . Children: sons: 1, with second baby. 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 Exercise: yes. Caffeine: yes, frequency: 3 cups/day. Sexually active: yes. Travel ouside [place]: no. Pets: dog, guine pig, chicken, sheep. * Medications: T akingAlbuterol (Eqv-ProAir HFA) 90 mcg/inh aerosol 2 INH inhaled every 6 hours Bystolic 10 mg tablet 1 tab(s) orally once a day FLUoxetine Hydrochloride 40 mg capsule 1 caps orally once a day sildenafil 100 mg tablet 1 tab(s) orally once a day Taking Albuterol (Eqv-ProAir HFA) 90 mcg/inh aerosol 2 INH inhaled every 6 hours Taking Bystolic 10 mg tablet 1 tab(s) orally once a day Taking FLUoxetine Hydrochloride 40 mg capsule 1 caps orally once a day Taking sildenafil 100 mg tablet 1 tab(s) orally once a day Not-TakingBonjesta 20 mg-20 mg tablet, extended release 1 tab(s) orally once a day (at bedtime) Breo Ellipta 100 mcg-25 mcg/inh powder 1 inh inhaled once a day Flonase 50 mcg/inh spray 1 spray(s) in each nostril once a day Sudafed 30 mg tablet 1 tab(s) orally every 6 hours ZyrTEC 10 mg tablet 1 tab(s) orally once a day Not-Taking Bonjesta 20 mg-20 mg tablet, extended release 1 tab(s) orally once a day (at bedtime) Not-Taking Breo Ellipta 100 mcg-25 mcg/inh powder 1 inh inhaled once a day Not-Taking Flonase 50 mcg/inh spray 1 spray(s) in each nostril once a day Not-Taking Sudafed 30 mg tablet 1 tab(s) orally every 6 hours Not- Taking ZyrTEC 10 mg tablet 1 tab(s) orally once a day * Allergies: t heophylline Objective: * Vitals: R R: 16 /min, HR: 64 /min, BP: 110/82 mm Hg, Ht: 66 in, Wt: 213.4 lbs, BMI:34.44Index. O2:96 LO. * Physical Examination: G ENERAL: General Appearence: [...] S1S2. L UNGS: Auscultation: C TA bilaterally, n o wheezing/rhonchi/rales. O xygen use: n one. A BDOMEN: General: s oft. B owel sounds: n ormoactive. T enderness: n one. B ACK: Spine: u nremarkable. R OM: F ROM without pain.? E XTREMITIES: Upper Extremities: n ormal. L ower Extremities: n ormal. E dayne: n one. S kin: n ormal. P ulses: 2 + bilateral. C lubbing:?no. C yanosis: n o. M USCULOSKELETAL: Wrist: u nremarkable. A rm: u nremarkable. K nee: u nremarkable. N EUROLOGICAL: Orientation: a lert and oriented x 3. C ognition: n ormal. Assessment: * Assessment: 1. E ncounter for annual general medical examination with abnormal findings in adult - Z00.01 (Primary) 2 . E xercise-induced asthma - J45.990 3 . A typical chest pain - R07.89 4 . T rigeminy - R00.8 5 . S noring - R06.83 6 . U rinary retention - R33.9 7 . H ereditary hemochromatosis - E83.110 8 . N on-seasonal allergic rhinitis due to pollen - J30.1? 9. L iver cyst - K76.89 1 0. M ixed hyperlipidemia - E78.2 11. E rectile disorder due to medical condition in male - N52.1 1 2. G AD (generalized anxiety disorder) - F41.1 1 3. S acroiliitis - M46.1? 14. O besity (BMI 30-39.9) - E66.9 1 5. C arpal tunnel syndrome on both sides - G56.03 1 6. O SA (obstructive sleep apnea) - G47.33 ? 1 7. E levated ALT measurement - R74.01 1 8. P rediabetes - R73.03? Plan: * Treatment: Value Reference Range W BC 6.3 3.4-10.8 - x10E3/uL * R BC 4.73 4.14-5.80 - x10E6/uL * H emoglobin 15.0 13.0-17.7 - g/dL * H ematocrit 43.5 37.5-51.0 - % * M CV 92 79-97 - fL * M CH 31.7 26.6-33.0 - pg * M CHC 34.5 31.5-35.7 - g/dL * N eutrophils 54 Not Estab. - % * L ymphs 34 Not Estab. - % * M onocytes 7 Not Estab. - % * E os 4 Not Estab. - % * B asos 1 Not Estab. - % * P latelets 280 150-450 - x10E3/uL * N eutrophils (Absolute) 3.3 1.4-7.0 - x10E3/uL * L ymphs (Absolute) 2.1 0.7-3.1 - x10E3/uL * M onocytes(Absolute) 0.5 0.1-0.9 - x10E3/uL * E os (Absolute) 0.3 0.0-0.4 - x10E3/uL * B aso (Absolute) 0.1 0.0-0.2 - x10E3/uL * R DW 12.8 11.6-15.4 - % * I mmature Grans (Abs) 0.0 0.0-0.1 - x10E3/uL * I mmature Granulocytes 0 Not Estab. - % ?LAB: *Comp. Metabolic Panel (14) (Collection Date & Time - 01/08/2025 10:40 AM)* Value Reference Range C alcium, Serum 9.7 8.7-10.2 - mg/dL * G lucose, Serum 106 H 70-99 - mg/dL * B UN 10 6-24 - mg/dL * P rotein, Total, Serum 7.0 6.0-8.5 - g/dL * A lbumin, Serum 4.7 4.1-5.1 - g/dL * B ilirubin, Total 0.4 0.0-1.2 - mg/dL * A lkaline Phosphatase, Serum 96 44-121 - IU/L * A ST (SGOT) 34 0-40 - IU/L * P otassium, Serum 4.2 3.5-5.2 - mmol/L * S odium, Serum 140 134-144 - mmol/L * C hloride, Serum 105 96-106 - mmol/L * C reatinine, Serum 0.86 0.76-1.27 - mg/dL * A LT (SGPT) 74 H 0-44 - IU/L * C arbon Dioxide, Total 20 20-29 - mmol/L * B UN/Creatinine Ratio 12 9-20 - * G lobulin, Total 2.3 1.5-4.5 - g/dL * e GFR 111 >59 - mL/min/1.73 2.?Atypical chest pain? Notes:EKG done, ordered stress test, ECHO-seen by all normal?? 3.?Trigeminy? Continue Bystolic tablet, 10 mg, 1 tab(s), orally, once a day.??4.?Snoring? Notes:referral to sleep studies -received CPAP machine but could not tolerate it. Seen again by , does not want to do CPAP??5.?Urinary retention? Notes:referal to -was seen received Flomax but gave him tachycardia: stopped taking??6.?Hereditary hemochromatosis?LAB: *Ferritin, Serum (Collection Date & Time - 01/08/2025 10:40 AM)* Value Reference Range F erritin, Serum 558 H 30-400 - ng/mL Notes:referred to Aquilino Sousa, he didn't make appointment feritin high 558??7.?Mixed hyperlipidemia?LAB: *Lipid Panel (Collection Date & Time - 01/08/2025 10:40 AM)* Value Reference Range C holesterol, Total 214 H 100-199 - mg/dL * T riglycerides 156 H 0-149 - mg/dL * H DL Cholesterol 47 >39 - mg/dL * V LDL Cholesterol Jame 28 5-40 - mg/dL * L DL Chol Calc (NIH) 139 H 0-99 - mg/dL Notes: ?12/2023 LDL 153 risk 1.4 12/2024 LDL 139??8.?Erectile disorder due to medical condition in male? Continue sildenafil tablet, 100 mg, 1 tab(s), orally, once a day.?? Notes: taking Rarely??9.?KIKI (generalized anxiety disorder)? Continue FLUoxetine Hydrochloride capsule, 20 mg, TAKE 1 CAPSULE BY MOUTH EVERY DAY.??10.?Sacroiliitis? Notes: ?seeening , injection in back q 6 months-- in neck q 12 months??11.?Carpal tunnel syndrome on both sides? Notes: ?referal hand surgery--no CPT as per surgery, probably coming from cervical area? 12.?JOVAN (obstructive sleep apnea)? Notes: ?not on CPAP??13.?Elevated ALT measurement? Notes: ?12/2023 ALT 82 12/2024 ALT 74??14.?Prediabetes?LAB: *Hemoglobin A1c (Collection Date & Time - 01/08/2025 10:40 AM)* Value Reference Range H emoglobin A1c 5.6 4.8-5.6 - % Notes: ?12/2023 a1c 5.8 12/2024 resolved a1c 5.6??15.?Others? Stop ZyrTEC tablet, 10 mg, 1 tab(s), orally, once a day;?Stop Breo Ellipta powder, 100 mcg-25 mcg/inh, 1 inh, inhaled, once a day, 30 days, 1;?Continue Albuterol (Eqv-ProAir HFA) aerosol, 90 mcg/inh, 2 INH, inhaled, every 6 hours;?Stop Flonase spray, 50 mcg/inh, 1 spray(s), in each nostril, once a day.?? Notes: Tdap 2022 NEXT? hem? * Procedure Codes: * Preventive Medicine: Counseling: Eliza corey on-smoker 0 01/08/2025 He used to smoke a very long time ago. C are goal follow up plan: B VT management provided Y es. D iet X .? Immunizations: T etnus 2 023. * Follow Up: p rn Billing Information: * Visit Code: 13803 PREV VISIT, EST, AGE 40-64. [address]17 OFFICE/OUTPATIENT VISIT, EST. Modifiers: 25 * Electronic signature of Nanette Carmona M.D. on 04/17/2025 at 08:53 AM EST Sign off status: Pending * Provider: Kaye Carmona MD Date: 0 01/08/2025 Generated for Glenny thomas/Laura/eTransmitting on: 1 06/17/2024 08:53 AM EST
--- OUTSIDE RECORDS SUMMARY | 2025-01-19 04:00 | XMS_ITS ---
Author Organization [facility] [employer] [facility] Address [address] [address] Care Team Providers Care Kitchen Assistant Name Role Phone Mehnaz Carmona Primary Care Provider Edward Dodson Unavailable [phone] Migration, Provider Unavailable Unavailable REASON FOR VISIT EMR-Baldo Encounters Encounter Location Date Provider Diagnosis [facility] [address] [address] 01/19/2025 Provider Migration Plan Of Treatment No Information Progress Notes * Angy TANGRenettaOB:[birth year] (44 yo M)Acc No.[id number]:01/19/2025 Patient: Vaughn DUMONT :1980 A ge:44 Y S ex:Male Address:[address] [facility], [place] [address] Subjective: * Chief Complaints: * E MR-Baldo * Medical History: * Surgical History: * Hospitalization/Major Diagno stic Procedure: * Medications: Objective: * Vitals: * Physical Examination: Assessment: Plan: * Treatment: * Procedure Codes: * * Date:
--- OUTSIDE RECORDS SUMMARY | 2025-01-20 04:00 | XMS_ITS ---
Author Organization [facility] [employer] [facility] Address [address] [address] Care Team Providers Care Ld Teacher Name Role Phone Mehnaz Carmona Primary Care Provider UnavailEdward Angelo Unavailable [phone] Migration, Provider Unavailable Unavailable Allergies Allergen (clinical drug ingredient) Drug/Non Drug Allergy documented on EMR Reaction Allergy Type Onset Date Status theophylline Theophylline Unknown Drug Allergy A ctive REASON FOR VISIT EMR-Baldo Encounters Encounter Location Date Provider Diagnosis [facility] [employer] [address] [address] 01/20/2025 Provider Migration Plan Of Treatment No Information Progress Notes * Angy TANGRenettaOB:[birth year] (44 yo M)Acc No.[id number]:01/20/2025 Patient: Vaughn DUMONT :1980 A ge:44 Y S ex:Male Address:[address] [facility], [place] [address] Subjective: * Chief Complaints: * E MR-Baldo * Medical History: * Surgical History: * Hospitalization/Major Diagno stic Procedure: * Medications: * Allergies: T heophylline: Allergy Objective: * Vitals: * Physical Examination: Assessment: Plan: * Treatment: * Procedure Codes: * * Date:
--- OUTSIDE RECORDS SUMMARY | 2025-04-17 08:54 | XMS_ITS | Clinical Summary ---
Author Organization [facility] Address [address] [place] [address] Care Team Providers Care Math Instructor Name Role Phone Mehnaz Carmona MD Primary Care Provider [phone] Allergies Active Allergy Reactions Criticality Noted Date Comments Seasonal 11/19/2019 Theophylline 11/19/2019 Medications ALBUTEROL SULFATE (PROAIR HFA) 108 (90 BASE) MCG/ACT Aero Soln None Entered 04/11/2018 Active Nebivolol HCl (BYSTOLIC) 10 MG Tab None Entered 11/04/2018 Active Sildenafil Citrate 100 MG Tab None Entered 12/12/2017 Active Fluoxetine HCl (PROzac) 20 MG capsule Take 40 mg by mouth 1 (one) time each day. Active Active Problems Problem Noted Date Diagnosed Date Sacroiliitis 01/05/2023 Radicular pain PT 07/16/2020 Cervical spondylosis PT 07/16/2020 Radicular pain in right arm PT 07/16/2020 Encounters Date Type Department Care Team Description 04/02/2025 4:15 PM EDT Office Visit [facility] [address] [place] [address] Jose Adan MD Facet hypertrophy of lumbar region (Primary Dx) from Last 3 Months Social History Tobacco Use Types Packs/Day Years Used Date Smoking Tobacco: Never Assessed Passive Smoke Exposure: Past Tobacco Cessation:Counseling Given: Not Answered Intimate Partner Violence Answer Date R ecorded Fear of Current or Ex-Partner Not on file Emotionally Abused Not on file 01/21/2023 Physically Abused Not on file 01/21/2023 Sexually Abused Not on file 01/21/2023 Feel Safe at Home Not on file 01/21/2023 Sex and Gender Information Value Date Recorded Sex Assigned at Not on file Legal Sex Male 8:55 AM EDT Gender Identity Not on file Sexual Orientation Not on file Last Filed Vital Signs Vital Sign Reading Time Taken Comments Blood Pressure 136/98 10/30/2024 10:58 AM EDT Pulse 64 10/30/2024 10:58 AM EDT Temperature 36.8 C (98.2 F) 10/30/2024 10:58 AM EDT Respiratory Rate 16 09/26/2020 8:09 AM EDT Oxygen Saturation 95% 10/30/2024 10:58 AM EDT Inhaled Oxygen Concentration - - Weight 88.5 kg (195 lb) 10/22/2020 10:22 AM EDT Height - - Body Mass Index - - Plan of Treatment Health Maintenance Due Date Last Done Comments Hepatitis C Screening 1982 DTaP/Tdap/Td (1 - Tdap) 2000 Hep B (1 of 3 - 19+ 3-dose series) 2001 COVID-19 Vaccine ( - 2024-2 6 season) 2025 Influenza (#1) 2025 Zoster (Shingrix) (1 of 2) 2032 HPV Vaccine (No Doses Required) Completed Hep A Aged Out No longer eligi ble based on patient's age to complete this topic Hib Aged Out No longer eligi ble based on patient's age to complete this topic Meningococcal ACWY Aged Out No longer eligible based on patient's age to complete this topic Pneumococcal Aged Out No longer eligi ble based on patient's age to complete this topic Insurance BCBS FEE FOR SERVICE PPO Care Teams Math Instructor Relationship Specialty Start Date End Date Mehnaz Carmona MD [facility] [address] [place] [phone] PCP - General Internal Medicine 09/20/18
--- OUTSIDE RECORDS SUMMARY | 2025-04-17 08:54 | XMS_ITS | Patient Health Record ---
Author Organization [facility] Address [address] [place] [address] Care Team Providers Care Promotions Producer Name Role Phone Mehnaz Carmona Primary Care Provider [phone] Jose Savage Unavailable [phone] Allergies Allergen (clinical drug ingredient) Drug/Non Drug Allergy documented on EMR Reaction Allergy Type Onset Date Status theophylline Unknown Drug Allergy Acti ve Results Component Value Reference Range Flag Notes *Ferritin, Serum Reviewed date:01/09/2025 08:30:56 AM Interpretation: Performing Lab:[facility], [address] [place] [address], Phone - [phone], Director - MDJodry Notes/Report: Ferritin 558 30-400 ng/mL H *CBC With Differential/Plate let Reviewed date:01/09/2025 08:30:56 AM Interpretation: Performing Lab:[facility], [address] [place] [address], Phone - [phone], Director - MDJodry Notes/Report: WBC 6.3 3.4-10.8 [...] Panel Reviewed date:01/09/2025 08:30:56 AM Interpretation: Performing Lab:[facility], [address] [place] [address], Phone - [phone], Director - MDWiliamy Notes/Report: Cholesterol, Total 214 100-199 mg/dL H Triglycerides 156 0-149 mg/dL H HDL Cholesterol 47 >39 mg/dL VLDL Cholesterol Jame 28 5-40 mg/dL LDL Chol Calc (NIH) 139 0-99 mg/dL H *Comp. Metabolic Panel (14) Reviewed date:01/09/2025 08:30:56 AM Interpretation: Performing Lab:[facility], [address] [place] [address], Phone - [phone], Director - MDJoy Notes/Report: Glucose 106 70-99 mg/dL H BUN [...] A1c Reviewed date:01/09/2025 08:30:56 AM Interpretation: Performing Lab:[facility], [address] [place] [address], Phone - [phone], Director - Ama Notes/Report: Hemoglobin A1c 5.6 4.8-5.6 % . Prediabetes: 5.7 - 6.4 Diabetes: >6.4 Glycemic control for adults with diabetes: <7.0 CXR AP LAT WITH FLUORO Reviewed date:07/04/2024 04:22:56 PM Interpretation: Performing Lab: Notes/Report: See Below For Report CHEST RADIOGRAPH, 2 VIEWS. Reason For Referral Reason Hemochromatosis Referral Organization [facility] Referring Provider First Name Mehnaz Referring Provider Last Name Mathew Referring Provider Speciality Internal M edicine Referred Provider Aron Caraballo Referred Provider Specialty Hematology/O ncology General Notes Lizy Garza 2024 02:16:01 PM EDT > Please call the patient to schedule. Thank you. Referral Priority Routine Reason Hemochromatosis Referral Organization [facility] Referring Provider First Name Mehnaz Referring Provider Last Name Mathew Referring Provider Speciality Internal edicine Referred Provider Lars Rolle Referred Provider Specialty Hematology/O ncology General Notes Lizy Garza 12/26 09:36:14 AM EDT > Auth# [id number]. [facility] PPO [id number]. Please call the patient to schedule. Thank you., Lizy Garza 01/10/2025 08:48:25 AM EDT > faxed again Referral Priority Routine Medications Medication SIG (Take, Route, Frequency, Duration) Notes Start Date End Date Status FLUoxetine Hydrochloride 20 mg capsule TAKE 1 CAPSULE BY MOUTH EVERY DAY 01/08/2025 Active Bystolic 10 mg tablet 1 tab(s) orally on ce a day; Duration: 30 days Active Sudafed 30 mg tablet 1 tab(s) orally reena ry 6 hours; Duration: 14 days 07/05/2024 Not-Taking sildenafil 100 mg tablet 1 tab(s) orally once a day 01/08/2025 Active Bonjesta 20 mg-20 mg tablet, extended release 1 tab(s) orally once a day (at bedtime); Duration: 30 days 12/05/2024 Not-Taking Albuterol (Eqv-ProAir HFA) 90 mcg/inh aerosol 2 INH inhaled every 6 hours 01/08/2025 Active FLUoxetine Hydrochloride 40 mg capsule 1 caps orally once a day; Duration: 7 days Active Social History Social History Additional Details Category Social Info Options Details Social History 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 Travel ouside [place]: no Alcohol: socially Sexually active: yes Exercise: yes Caffeine: yes frequency: 3 cup s/day Marital Status: Children: sons: 1, pr egnant with second baby Pets: dog, guine pig, chicken, sheep Checked Cholesterol levels yes Seat belt usage Yes Problems Problem Type SNOMED Code ICD Code Onset Dates Problem Status W/U Status Risk Notes Problem Mixed hyperlipidemia (339212066) Mixed hyperlipidemia (E78.2) Active confirmed Problem Hereditary hemochromatosis (77520453) Hereditary hemochromatosis (E83.110) Active confirmed Problem Snoring (92146645) Snoring (R06.83) Active conf irmed Problem Obesity (849821806) Obesity (BMI 30-39.9) (E66.9) Active confirmed Problem Secondary erectile dysfunction (disorder) (330174129) Erectile disorder due to medical condition in male (N52.1) Active confirmed Problem Liver cyst (89578343) Liver cyst (K76.89) Active confirmed Problem Exercise-induced asthma (98508529) Exercise-induced asthma (J45.990) Active confirmed Problem Obstructive sleep apnea syndrome (21146193) JOVAN (obstructive sleep apnea) (G47.33) Active confirmed Problem Sacroiliitis (45905749) Sacroiliitis (M46.1) Active confirmed Problem Atypical chest pain (538220046) Atypical chest pain (R07.89) Active confirmed Problem Generalized anxiety disorder (80020827) KIKI (generalized anxiety disorder) (F41.1) Active confirmed Problem Urinary retention (072761805) Urinary retention (R33.9) Active confirmed Problem Prediabetes (556494114) Prediabetes (R73.03) Active confirmed Problem Carpal tunnel syndrome (63175892) Carpal tunnel syndrome on both sides (G56.03) Active confirmed Problem Allergic rhinitis caused by pollen (40473323) Non-seasonal allergic rhinitis due to pollen (J30.1) Active confirmed Problem Trigeminy (94523668) Trigeminy (R00.8) Active confirmed Problem alanine aminotransferase above reference range (finding) (407968013) Elevated ALT measurement (R74.01) Active confirmed Vital Signs Blood pressure diastolic 82 mm Hg 01/08/2025 O2:96 LO Height 66 in 01/08/2025 O2:96 LO Blood pressure systolic 110 mm Hg 01/08/2025 O2:96 LO Weight 213.4 lbs 01/08/2025 O2:96 LO BMI 34.44 kg/m2 01/08/2025 O2:96 LO Encounters Encounter Location Date Provider Diagnosis [facility] [address] [place] [id number] 01/08/2025 Imola Mathew Exercise-induced ast hma J45.990 ; Encounter for [...] Elevated ALT measurement R74.01 and Prediabetes R73.03 [facility] [address] [place] [address] [id number] 07/04/2024 Imola Mathew Exercise-induced ast hma J45.990 ; Acute pneumonia J18.9 ; Atypical chest pain R07.89 ; Trigeminy [...] Elevated ALT measurement R74.01 and Prediabetes R73.03 [facility] [address] [place] [address] [place] [id number] 07/04/2024 Imola Mathew [facility] [address] [id number] 08/02/2024 Imola Mathew Trigeminy R00.8 [facility] [address] [id number] 01/08/2025 Imola Mathew [facility] [address] [id number] 01/09/2025 Imola Mathew [facility] [address] [id number] 06/26/2024 Imola Mathew [facility] [address] [id number] 07/03/2024 Imola Mathew [facility] [address] [id number] 07/04/2024 Imola Mathew [facility] [address] [id number] 07/04/2024 Imola Mathew [facility] [address] [id number] 07/04/2024 Imola Mathew [facility] [address] [id number] 07/04/2024 Imola Mathew [facility] [address] [id number] 07/05/2024 Imola Mathew [facility] [address] [id number] 07/05/2024 Imola Mathew [facility] [address] [id number] 07/21/2024 Imola Mathew [facility] [address] [id number] 07/21/2024 Imola Mathew [facility] [address] [id number] 09/13/2024 Imola Mathew Trigeminy R00.8 [facility] [address] [id number] 09/13/2024 Imola Mathew [facility] [address] [id number] 09/19/2024 Imola Mathew [facility] [address] [id number] 09/20/2024 Imola Mathew [facility] [address] [id number] 09/20/2024 Imola Mathew [facility] [address] [id number] 09/20/2024 Imola Mathew [facility] [address] [id number] 09/20/2024 Imola Mathew [facility] [address] [id number] 09/25/2024 Imola Mathew Racheliny R00.8 [facility] [address] [id number] 10/11/2024 Imola Mathew [facility] [address] [id number] 10/11/2024 Imola Mathew [facility] [address] [id number] 10/11/2024 Imola Mathew [facility] [address] [id number] 11/08/2024 Imola Mathew [facility] [address] [id number] 11/11/2024 Immartha Savage MD [address] [id number] 12/02/2024 Jose Savage [facility] [address] [id number] 12/02/2024 Imola Mathew [facility] [address] [id number] 12/03/2024 Imola Mathew [facility] [address] [id number] 12/03/2024 Imola Mathew [facility] [address] [id number] 12/03/2024 Imola Mathew [facility] [address] [id number] 12/03/2024 Imola Mathew [facility] [address] [id number] 12/04/2024 Imola Mathew [facility] [address] [id number] 12/05/2024 Imola Mathew [facility] [address] [address] [place], [place] [id number] 12/05/2024 [facility] [address] [place] [address] [id number] 12/05/2024 Mehnaz Savage MD [address] [id number] 12/12/2024 [facility] [address] [place] [address] [id number] 12/18/2024 [facility] [address] [place] [address] [id number] 03/13/2025 Mehnaz Carmona Assessments Encounter Date Diagnosis (ICD Code) Assessment Notes Treatment Notes Treatment Clinical Notes Section Notes 07/04/2024 Exercise-induced asthma (ICD-10 - J45.990) 08/02/2024 Trigeminy (ICD-10 - R00.8) 09/13/2024 Trigeminy (ICD-10 - R00.8) 09/25/2024 Trigeminy (ICD-10 - R00.8) 07/04/2024 Acute pneumonia (ICD-10 - J18.9) finished 2 antibiotic ccourse, will check xray again 01/08/2025 Exercise-induced asthma (ICD-10 - J45.990) 01/08/2025 Encounter for annual general medical examination with abnormal findings in adult (ICD-10 - Z00.01) 01/08/2025 Atypical chest pain (ICD-10 - R07.89) EKG done, ordered stress test, ECHO-seen by all normal 07/04/2024 Atypical chest pain (ICD-10 - R07.89) EKG done, ordered stress test, ECHO-seen by all normal 07/04/2024 Trigeminy (ICD-10 - R00.8) 01/08/2025 Trigeminy (ICD-10 - R00.8) 01/08/2025 Snoring (ICD-10 - R06.83) referral to sleep studies -received CPAP machine but could not tolerate it. Seen again by , does not want to do CPAP 07/04/2024 Snoring (ICD-10 - R06.83) referral to sleep studies -received CPAP machine but could not tolerate it. Seen again by , does not want to do CPAP 01/08/2025 Urinary retention (ICD-10 - R33.9) referal to -was seen received Flomax but gave him tachycardia: stopped taking 07/04/2024 Urinary retention (ICD-10 - R33.9) referal to -was seen received Flomax but gave him tachycardia 07/04/2024 Hereditary hemochromatosis (ICD-10 - E83.110) will refer to [facility] 01/08/2025 Hereditary hemochromatosis (ICD-10 - E83.110) referred to Aquilino Sousa, he didn't make appointment [facility] 558 07/04/2024 Non-seasonal allergic rhinitis due to pollen (ICD-10 - J30.1) 01/08/2025 Non-seasonal allergic rhinitis due to pollen (ICD-10 - J30.1) 07/04/2024 Liver cyst (ICD-10 - K76.89) 01/08/2025 Liver cyst (ICD-10 - K76.89) 07/04/2024 Mixed hyperlipidemia (ICD-10 - E78.2) 12/2023 LDL 153 risk 1.4 01/08/2025 Mixed hyperlipidemia (ICD-10 - E78.2) 12/2023 LDL 153 risk 1.4 12/2024 LDL 139 07/04/2024 Erectile disorder due to medical condition in male (ICD-10 - N52.1) 01/08/2025 Erectile disorder due to medical condition in male (ICD-10 - N52.1) taking Rarely 01/08/2025 KIKI (generalized anxiety disorder) (ICD-10 - F41.1) 07/04/2024 KIKI (generalized anxiety disorder) (ICD-10 - F41.1) 07/04/2024 Sacroiliitis (ICD-10 - M46.1) seeening , injection in back q 6 months-- in neck q 12 months 01/08/2025 Sacroiliitis (ICD-10 - M46.1) seeening , injection in back q 6 months-- in neck q 12 months 07/04/2024 Obesity (BMI 30-39.9) (ICD-10 - E66.9) 01/08/2025 Obesity (BMI 30-39.9) (ICD-10 - E66.9) 01/08/2025 Carpal tunnel syndrome on both sides (ICD-10 - G56.03) referal hand surgery--no CPT as per surgery, probably coming from cervical area 07/04/2024 Carpal tunnel syndrome on both sides (ICD-10 - G56.03) referal hand surgery--no CPT as per surgery, probably coming from cervical area 07/04/2024 JOVAN (obstructive sleep apnea) (ICD-10 - G47.33) not on CPAP 01/08/2025 JOVAN (obstructive sleep apnea) (ICD-10 - G47.33) not on CPAP 07/04/2024 Elevated ALT measurement (ICD-10 - R74.01) 12/2023 ALT 82 01/08/2025 Elevated ALT measurement (ICD-10 - R74.01) 12/2023 ALT 82 12/2024 ALT 74 01/08/2025 Prediabetes (ICD-10 - R73.03) 12/2023 a1c 5.8 12/2024 resolved a1c 5.6 07/04/2024 Prediabetes (ICD-10 - R73.03) 12/2023 a1c 5.8 01/08/2025 Other Tdap 2022 NEXT hem 07/04/2024 Other Tdap 2022 NEXT hem Plan Of Treatment Pending Test Test Name Order Date MRI : Lumbosacral Spines w/o contrast Echo - 2D color flow and dop pler with 2D color flow and dopplar w/contrast if clinically indicated per protocol 09/19/2018 *Strep Cx if Indicated 05/14/2021 Exercise Treadmill Test 09/19/2018 RAD: CHEST 2 VIEW AP/PA AND LAT 07/04/19 25 EGD 07/11/2020 *STAT 05/14/2021 Ultrasound Abdomen Limited 07/11/2020 Next Appt Details Provider Name:Mehnaz Carmona, 01/15/2026 10:00:00 AM, [address] [facility], [place] [address], [place], [place], [id number], Insurance Providers Payer Name Payer Address Payer Phone Subscriber Number Group Number Insured Name Patient Relationship to Insured Coverage Start Date Coverage End Date BCBS ENDER BCBS PPO [address] [place] [address] [id number] Vaughn Tang Self - patient is the insured Medical (General) History Medical History History ICD Code Hereditary hemochromatosis Allergic rhinitis Hypertension Exercise induced asthma Chronic low back pain Vitamin D deficiency Urinary retention Lumbar fracture Ventricular trigeminy Hyperlipidemia Hepatic cyst Surgical History Surgery Date(Month/Year) Tonsillectomy 1987 LASIK 2008
--- OUTSIDE RECORDS SUMMARY | 2025-04-17 08:54 | XMS_ITS | Clinical Summary ---
Author Organization [facility] Address [address] [place] [address] Care Team Providers Care Hot Die Press Feeder Name Role Phone Pcp, No Primary Care Provider [phone] Allergies Active Allergy Reactions Criticality Noted Date Comments Felodipine Other (See Comments) 09/08/2023 Pollen Extracts 11/19/2019 Theophylline 03/17/2019 Medications albuterol (PROAIR HFA) 90 mcg/actuation inhaler ProAir HFA 90 mcg/actuatio n aerosol inhaler Active sildenafiL (VIAGRA) 100 MG tablet Take by mouth. 12/12/2017 Active FLUoxetine (PROzac) 40 MG capsule Take 1 tablet by mouth 06/13/2019 Active nebivoloL (BYSTOLIC) 10 MG tablet Take 1 tablet (10 mg total) by mouth 06/13/2016 Active Active Problems Problem Noted Date Diagnosed Date Class 1 obesity 09/08/2023 09/08/2023 Sacroiliitis 01/05/2023 09/08/2023 Cervical spondylosis 07/16/2020 09/08/2023 Radicular pain 07/16/2020 09/08/2023 Social History Tobacco Use Types Packs/Day Years Used Date Smoking Tobacco: Former Cigarettes 0 Q uit: 2013 Passive Smoke Exposure: Never Smokeless Tobacco: Never Tobacco Cessation:Counseling Given: Not Answered Sex and Gender Information Value Date Recorded Sex Assigned at Not on file Legal Sex Male 1:34 PM EDT Gender Identity Not on file Sexual Orientation Not on file Last Filed Vital Signs Vital Sign Reading Time Taken Comments Blood Pressure 123/89 09/21/2023 8:41 AM EDT Pulse 72 09/21/2023 8:41 AM EDT Temperature 36.2 C (97.2 F) 09/21/2023 8:41 AM EDT Respiratory Rate 18 09/21/2023 8:41 AM EDT Oxygen Saturation 97% 09/21/2023 8:41 AM EDT Inhaled Oxygen Concentration - - Weight 86.2 kg (190 lb) 07/02/2023 3:02 PM EST Height 167.6 cm (5' 6 ) 07/02/2023 3:02 PM EST Body Mass Index 30.67 07/02/2023 3:02 PM EST Plan of Treatment Not on file Medical Devices Not on file Insurance [facility] Care Teams Hot Die Press Feeder Relationship Specialty Start Date End Date Pcp, Cristela PCP - General Family Medicine 05/12/23
--- OUTSIDE RECORDS SUMMARY | 2025-04-17 08:54 | XMS_ITS | Encounter Summary ---
Author Organization [facility] Address [address] [place] [address] Care Team Providers Care Painter Plate Name Role Phone Mehnaz Carmona MD Primary Care Provider [phone] Reason for Visit * Reason Comments Insurance Question called pt but mailbo x is full need to update ins Encounter Details Date Type Department Care Team ([facility] Contact Info) Description 10/14/2022 Telephone Central Registration [address] [place] [address] Jose Adan MD [address] [place] [address] Insurance Question (/called pt but mailbox is full need to update ins) Social History Tobacco Use Types Packs/Day Years Used Date Smoking Tobacco: Never Assessed Sex and Gender Information Value Date Recorded Sex Assigned at Not on file Legal Sex Male 8:55 AM EDT Gender Identity Not on file Sexual Orientation Not on file documented as of this encounter Miscellaneous Notes * Telephone Encounter - Babita Nieto - 10/14/2022 11:39 AM EDT called pt but mailbox is full need to update ins documented in this encounter Plan of Treatment Not on file documented as of this encounter Visit Diagnoses Not on filedocumented in this encounter Care Teams Painter Plate Relationship Specialty Start Date End Date Mehnaz Carmona MD [facility] [address] [phone] PCP - General Internal Medicine 09/20/18 documented as of this encounter
--- OUTSIDE RECORDS SUMMARY | 2025-04-17 08:55 | XMS_ITS | Clinical Summary ---
Author Organization [facility] Address [address] [place] [address] Phone Care Team Providers Care Bead Filler Name Role Phone Mehnaz Carmona MD Primary Care Provider Allergies Active Allergy Reactions Criticality Noted Date Comments Theophylline 11/19/2019 Medications FLUoxetine (PROzac) 20 mg capsuleIndications: Hereditary hemochromatosis (CMS/HCC V24) Take 2 capsules (40 mg total) by mouth daily. Active Bystolic 10 mg tabletIndications:H ereditary hemochromatosis (CMS/HCC V24) Take by mouth. 7 Active Encounters Date Type Department Care Team Description 03/29/[address] [facility] Hematology Oncology [address] [place] [phone] Aleisha Correia MD 03/29/[address] [facility] Infusion Center [address] [place] [phone] Aleisha Correia MD 03/27/2025 10:15 AM EDT Office Visit [facility] Hematology Oncology [address] [place] [phone] Aleisha Correia MD Hereditary hemochromatosis ([facility]/HCC V24) (Primary Dx) 03/13/2025 8:30 AM EDT Office Visit [facility] Hematology Oncology [address] [place] [phone] Aleisha Correia MD Hereditary hemochromatosis (CMS/HCC V24) (Primary Dx) from Last 3 Months Social History Tobacco Use Types Packs/Day Years Used Date Smoking Tobacco: Never Assessed Sex and Gender Information Value Date Recorded Sex Assigned at Male 01/17/2025 11:05 AM EDT Legal Sex Male 10:59 AM EDT Gender Identity Male 01/17/2025 11:05 AM EDT Sexual Orientation Straight 01/17/2025 11 :05 AM EDT Last Filed Vital Signs Vital Sign Reading Time Taken Comments Blood Pressure 154/92 03/27/2025 10:07 AM EDT Pulse 60 03/27/2025 10:07 AM EDT Temperature 36 C (96.8 F) 03/27/2025 10:07 AM EDT Respiratory Rate - - Oxygen Saturation 97% 03/27/2025 10:07 AM EDT Inhaled Oxygen Concentration - - Weight 98.4 kg (217 lb) 03/27/2025 10:07 AM EDT Height 167.6 cm (5' 6 ) 03/13/2025 8:40 AM EDT Body Mass Index 35.02 03/13/2025 8:40 AM EDT Plan of Treatment Upcoming Encounters Date Type Department Care Team (Late st Contact Info) Description 08/22/2025 8:30 AM EDT Office Visit [facility] Hematology Oncology [address] [place] [phone] Aleisha Correia MD [address] [place] [address] Health Maintenance Due Date Last Done Comments DTaP,Tdap,and Td Vaccines (1 - Tdap) 2001 Hepatitis B Vaccines (1 of 3 - 19+ 3-dose series) 2001 HPV Vaccines (1 - 3-dose SCD M series) 2009 Depression Screening 06/13/2024 Cholesterol Screening (Lipid Panel) 01/17/2025 HIV Screening 01/17/2025 Hepatitis C Screening 01/17/2025 Social Influencers of Health Screening 01/17/2025 COVID-19 Vaccine (1 - 2023-2 5 season) 2025 Influenza Vaccine (#1) 2025 RSV Immunization Adult Patie nts (1 - 1-dose 75+ series) 2057 HIB Vaccines Aged Out No longer eligi ble based on patient's age to complete this topic Hepatitis A Vaccines Aged Out No long er eligible based on patient's age to complete this topic IPV Vaccines Aged Out No longer eligi ble based on patient's age to complete this topic MMR Vaccines Aged Out No longer eligi ble based on patient's age to complete this topic Meningococcal ACWY Vaccine Aged Out N o longer eligible based on patient's age to complete this topic Meningococcal B Vaccine Aged Out No l onger eligible based on patient's age to complete this topic Pneumococcal Vaccine: Pediat rics (0 to 5 Years) and At-Risk Patients (6 to 49 Years) Aged Out No longer eligible b ased on patient's age to complete this topic RSV Immunization Patients Un davon 20 months Aged Out No longer eligible b ased on patient's age to complete this topic Varicella Vaccines Aged Out No longer eligible based on patient's age to complete this topic Procedures Procedure Name Priority Date/Time Associated Diagnosis Comments CBC WITH AUTO DIFFERENTIAL Routine 03/13/2025 9:11 AM EDT Hereditary hemochromatosis (CMS/HCC V24) HEMOCHROMATOSIS MUTATION Routine 03/13/2025 9:11 AM EDT Hereditary hemochromatosis (CMS/HCC V24) HEPATIC FUNCTION PANEL Routine 9:11 AM EDT Hereditary hemochromatosis (CMS/HCC V24) IRON AND TIBC Routine 03/13/2025 9:11 AM EDT Hereditary hemochromatosis (CMS/HCC V24) FERRITIN Routine 03/13/2025 9:11 AM EDT Hereditary hemochromatosis (CMS/HCC V24) CBC AND DIFFERENTIAL Routine 03/13/2025 9:11 AM EDT Hereditary hemochromatosis (CMS/HCC V24) from Last 3 Months Results * CBC auto differential (03/13/2025 9:11 AM EDT) Pathologist [facility] WBC 5.8 4.8 - 10.8 K/mcL LAB HEMETOLOGY METHOD 03/13/2025 11:46 AM [facility] RBC 5.00 4.50 - 5.50 M/mcL LAB HEMETOLOGY METHOD 03/13/2025 11:46 AM [facility] Hemoglobin 15.7 13.5 - 17.5 g/dL LAB HEMETOLOGY METHOD 03/13/2025 11:46 AM [facility] Hematocrit 44.3 42.0 - 54.0 % LAB HEMETOLOGY METHOD 03/13/2025 11:46 AM [facility] MCV 88.6 79.0 - 98.0 FL LAB HEMETOLOGY METHOD 03/13/2025 11:46 AM [facility] MCH 31.4 27.0 - 32.0 pcg LAB HEMETOLOGY METHOD 03/13/2025 11:46 AM [facility] MCHC 35.4 32.0 - 37.0 g/dL LAB HEMETOLOGY METHOD 03/13/2025 11:46 AM [facility] RDW 12.6 11.0 - 15.0 % LAB HEMETOLOGY METHOD 03/13/2025 11:46 AM [facility] Platelets 291 130 - 400 K/[facility] LAB HEMETOLOGY METHOD 03/13/2025 11:46 AM [facility] MPV 9.5 7.0 - 11.0 FL LAB HEMETOLOGY METHOD 03/13/2025 11:46 AM [facility] NRBC 0.0 <1.0 % LAB HEMETOLOGY METHOD 03/13/2025 11:46 AM [facility] NRBC Absolute 0.00 <0.10 K/mcL LAB HEMETOLOGY METHOD 03/13/2025 11:46 AM [facility] Neutrophils Relative 54.7 % LAB HEMETOLOGY METHOD 03/13/2025 11:46 AM [facility] Lymphocytes Relative 31.8 % LAB HEMETOLOGY METHOD 03/13/2025 11:46 AM [facility] Monocytes Relative 7.1 % LAB HEMETOLOGY METHOD 03/13/2025 11:46 AM [facility] Eosinophils Relative 5.0 % LAB HEMETOLOGY METHOD 03/13/2025 11:46 AM [facility] Basophils Relative 1.2 % LAB HEMETOLOGY METHOD 03/13/2025 11:46 AM [facility] Immature Granulocytes Relative 0.2 % LAB HEMETOLOGY METHOD 03/13/2025 11:46 AM [facility] Neutrophils Absolute 3.14 1.50 - 7.00 K/mcL LAB HEMETOLOGY METHOD 03/13/2025 11:46 AM [facility] Lymphocytes Absolute 1.83 1.00 - 5.00 K/mcL LAB HEMETOLOGY METHOD 03/13/2025 11:46 AM [facility] Monocytes Absolute 0.41 0.20 - 1.00 K/mcL LAB HEMETOLOGY METHOD 03/13/2025 11:46 AM [facility] Eosinophils Absolute 0.29 0.00 - 0.50 K/mcL LAB HEMETOLOGY METHOD 03/13/2025 11:46 AM [facility] Basophils Absolute 0.07 0.00 - 0.20 K/mcL LAB HEMETOLOGY METHOD 03/13/2025 11:46 AM [facility] Immature Granulocytes Absolute 0.01 0.00 - 0.03 K/mcL LAB HEMETOLOGY METHOD 03/13/2025 11:46 AM [facility] Blood Venous blood specimen / Unknown Venipuncture / Unknown 03/13/2025 9:11 AM EDT 03/13/2025 11:34 AM EDT Aleisha Correia MD LAB BLOOD ORDERABLES Final R esult [facility] [address] [place] [address], * Hemochromatosis mutation (03/13/2025 9:11 AM EDT) [facility] Hereditary Hemochromatosis See Below 03/21/2025 1:41 PM EDT [facility] Comment: RESULT: HETEROZYGOUS FOR THE C282Y AND H63D PATHOGENIC VARIANTS Interpretation: One copy each of the C282Y and H63D pathogenic variants in HFE gene was detected. Approximately 3%-8% of individuals with a biochemical diagnosis of hereditary hemochromatosis (HH) have this genotype. Therefore, this result is consistent with a diagnosis of HH in an individual with clinical evidence of HH. However, this genotype does not predict a diagnosis of HH in an asymptomatic individual, as only 0.5% to 2% of individuals with this genotype will develop symptoms or clinical evidence of this disorder. Disease diagnosis can only be made by demonstration of elevated iron stores. Genetic counseling is recommended to discuss the potential clinical implications of this result. Laboratory results and submitted clinical information reviewed by Brisa Mendez, Ph.D., [facility]. DETAILED ASSAY INFORMATION: Hereditary hemochromatosis (HH) is an autosomal recessive disorder of iron metabolism that can result in iron overload and potential organ failure. It is one of the most common genetic disorders in individuals of - ancestry, with an estimated carrier frequency of 10%. HH is caused by pathogenic variants in the HFE gene. Most individuals with HH (60-90%) are homozygous for the C282Y pathogenic variant. A smaller percentage of affected individuals are either compound heterozygous for the C282Y and H63D pathogenic variants (3%-8%), or homozygous for the H63D pathogenic variant (approximately 1%). METHODOLOGY: This assay detects two pathogenic variants in the HFE gene, C282Y (NM 813643.2: c.845G>A, p.Hsu510Ikn) and H63D (NM 151683.2: c.187C>G, p.Igd86Phu), that are commonly associated with HH. These variants are detected by multiplex-polymerase chain reaction (PCR) amplification, followed by restriction enzyme digestion and capillary electrophoresis. LIMITATIONS: This assay does not detect other pathogenic variants in the HFE gene that may be associated with HH. Although rare, false positive or false negative results may occur. All results should be interpreted in the context of clinical findings, relevant history, and other laboratory data. Health care providers, please contact your local [facility] genetic counselor or call [phone] ( ) for assistance with the interpretation of these results. This test was developed and its analytical performance characteristics have been determined by [facility]. It has not been cleared or approved by FDA. This assay has been validated pursuant to the CLIA regulations and is used for clinical purposes. For more information, please refer to [email or web address]/faq/hemochromatosis. (This link is being provided for informational/educational purposes only.) A portion of the testing was performed at [facility]. Reviewed and signed by Laboratory results and submitted clinical information reviewed by Brisa Mendez, Ph.D., [facility], Signed on 03/21/2025 at 09:54 Test Performed at: [facility] [address] [phone] Kaye Cardona MD, PhD, [facility] Blood Venous blood specimen / Unknown Venipuncture / Unknown 03/13/2025 9:11 AM EDT 03/13/2025 11:35 AM EDT us Aleisha Correia MD LAB MOLECULAR DIAGNOSTICS OR DERABLES Final Result [facility] [address] [place] [address] * (ABNORMAL) Iron and TIBC (03/13/2025 9:11 AM EDT) Iron 162(H) 50 - 160 mcg/dL LAB CHEMISTRY METHOD 03/13/2025 1:41 PM EDT [facility] TIBC 287 250 - 450 mcg/dL LAB CHEMISTRY METHOD 03/13/2025 1:41 PM EDT [facility] Iron Saturation 56(H) 20 - 50 % LAB CHEMISTRY METHOD 03/13/2025 1:41 PM EDT [facility] Blood Venous blood specimen / Unknown Venipuncture / Unknown 03/13/2025 9:11 AM EDT 03/13/2025 11:35 AM EDT us Aleisha Correia MD LAB BLOOD ORDERABLES Final R esult [facility] [address] [place] [address], [place] [phone] * (ABNORMAL) Ferritin (03/13/2025 9:11 AM EDT) Ferritin 519(H) 26 - 388 ng/mL LAB CHEMISTRY METHOD 03/13/2025 1:43 PM EDT [facility] Blood Venous blood specimen / Unknown Venipuncture / Unknown 03/13/2025 9:11 AM EDT 03/13/2025 11:35 AM EDT Aleisha Correia MD LAB BLOOD ORDERABLES Final R esult [facility] [address] [place] [address], [place] [phone] * (ABNORMAL) Hepatic function panel (03/13/2025 9:11 AM EDT) Total Protein 7.5 6.0 - 8.0 g/dL LAB CHEMISTRY METHOD 03/13/2025 1:43 PM EDT [facility] Albumin 4.3 3.2 - 5.0 g/dL LAB CHEMISTRY METHOD 03/13/2025 1:43 PM EDT [facility] Total Bilirubin 0.6 0.0 - 1.4 mg/dL LAB CHEMISTRY METHOD 03/13/2025 1:43 PM EDT [facility] Bilirubin, Direct 0.2 0.0 - 0.3 mg/dL LAB CHEMISTRY METHOD 03/13/2025 1:43 PM EDT [facility] Bilirubin, Indirect 0.4 0.0 - 1.1 mg/dL LAB CHEMISTRY METHOD 03/13/2025 1:43 PM EDT [facility] ALT (SGPT) 110(H) 10 - 60 unit/L LAB CHEMISTRY METHOD 03/13/2025 1:43 PM EDT [facility] AST (SGOT) 48(H) 10 - 42 unit/L LAB CHEMISTRY METHOD 03/13/2025 1:43 PM EDT [facility] Alkaline Phosphatase 89 42 - 121 unit/L LAB CHEMISTRY METHOD 03/13/2025 1:43 PM EDT [facility] Blood Venous blood specimen / Unknown Venipuncture / Unknown 03/13/2025 9:11 AM EDT 03/13/2025 11:35 AM EDT Aleisha Correia MD LAB BLOOD ORDERABLES Final R esult [facility] [address] [place] [address], from Last 3 Months Insurance [facility] Care Teams Bead Filler Relationship Specialty Start Date End Date Mehnaz Carmona MD [address] [place] [phone] PCP - General Internal Medicine 01/17/25
--- OUTSIDE RECORDS SUMMARY | 2025-04-17 08:55 | XMS_ITS | Clinical Summary ---
Author Organization [facility] Address [address] [place] [address] Phone Care Team Providers Care Jewel Bearing Turner Name Role Phone Mehnaz Carmona MD Primary Care Provider [phone] Self-Referred, Patient Unavailable Unavailab le Allergies Active Allergy Reactions Criticality Noted Date Comments Theophylline 01/27/2023 Medications albuterol 90 mcg/actuation inhaler ProAir HFA 90 mcg/actuatio n aerosol inhaler Active cetirizine (ZYRTEC) 10 mg capsule 06/13/2005 Active FLUoxetine (PROZAC) 40 MG capsule Take 1 tablet by mouth daily. 06/13/2019 Active nebivoloL (BYSTOLIC) 10 MG tablet Take 1 tablet by mouth daily. 06/13/2016 Active sildenafiL (VIAGRA) 100 mg tablet Take 1 tablet by mouth daily. 06/13/2007 Active Social History Tobacco Use Types Packs/Day Years Used Date Smoking Tobacco: Never Assessed Education Answer Date Recorded Are you interested in more education? Not on mavis e 01/21/2023 Are you concerned about learning? Not on file 01/21/2023 No 01/21/2023 No 01/21/2023 Digital Access Answer Date Recorded No 01/21/2023 No 01/21/2023 Reliable internet access at home? Not on file 01/21/2023 Device with a working camera? Not on file Sex and Gender Information Value Date Recorded Sex Assigned at Male 01/21/2023 9:52 AM EDT Legal Sex Male 9:51 AM EDT Gender Identity Male 01/21/2023 9:52 AM EDT Sexual Orientation Straight 01/21/2023 9: 52 AM EDT Last Filed Vital Signs Vital Sign Reading Time Taken Comments Blood Pressure 145/98 01/27/2023 9:27 AM EDT Pulse 66 01/27/2023 9:27 AM EDT Temperature 36 C (96.8 F) 01/27/2023 8:12 AM EDT Respiratory Rate 18 01/27/2023 9:27 AM EDT Oxygen Saturation - - Inhaled Oxygen Concentration - - Weight - - Height - - Body Mass Index - - Plan of Treatment Health Maintenance Due Date Last Done Comments Adult Td,Tdap Booster 1982 LIPID PANEL 1982 DEPRESSION SCREENING 1994 SMOKING Hx and SMOKELESS TOB ACCO SCREENING 12/11/1995 HEPATITIS C SCREENING 2000 HIV ONE-TIME SCREENING (18-6 5 YEARS) 2000 INFLUENZA VACCINE (#1) 2025 COVID-19 VACCINE (2024-2 6 season) 2025 HEPATITIS A VACCINES Aged Out No long er eligible based on patient's age to complete this topic HIB VACCINES Aged Out No longer eligi ble based on patient's age to complete this topic MENINGOCOCCAL VACCINES (ACWY) Aged Out No longer eligible based on patient's age to complete this topic MENINGOCOCCAL VACCINES (B) Aged Out N o longer eligible based on patient's age to complete this topic PNEUMOCOCCAL VACCINES (0-49 years) Aged Out No longer eligible based on patient's age to complete this topic Medical Devices Not on file Insurance CIG PPO CIGNA PPO CIGNA PPO CIGNA PPO HARRIET PPO Member Subscriber Plan / Payer (Ef fective 2022-Present) Name:Vaughn Tang Relation to Subscriber:Self Name:Vaughn Tang Payer ID:[id number] (NAIC) Type:PPO Address: [place] [id number] Care Teams Jewel Bearing Turner Relationship Specialty Start Date End Date Mehnaz Carmona MD [address] [place] [id number] PCP - General Internal Medicine 01/21/23 Self-Referred, Patient Referring Physician 01/21/23 Additional Source Comments The information contained in this document represents components of the legal health record. It is not the complete legal health record.[facility]
--- OUTSIDE RECORDS SUMMARY | 2025-04-17 08:55 | XMS_ITS | Patient Health Record ---
Author Organization [facility] [employer] [facility] Address [address] [address] Care Team Providers Care Public Finance Specialist Name Role Phone Mehnaz Carmona Primary Care Provider Edward Dodson Unavailable [phone] Migration, Provider Unavailable Unavailable Allergies Allergen (clinical drug ingredient) Drug/Non Drug Allergy documented on EMR Reaction Allergy Type Onset Date Status theophylline Theophylline Unknown Drug Allergy A ctive Reason For Referral No Information Medications Medication SIG (Take, Route, Fr equency, Duration) Notes Start Date End Date Status Melatonin 10 MG as directed Orally Active Claritin 10 MG 1 tablet Orally Once a day; Duration: 30 day(s) Active Bystolic 10 MG 1 tablet Orally Once a day; Duration: 30 day(s) Active PROzac 40 MG 1 capsule Orally Onc e a day; Duration: 30 day(s) Active Social History Tobacco Use: Social History Observation Description Date Details (start date - stop date) Former Smoker NA - NA Tobacco Use/Smoking Question Answer Notes Are you a former smoker How long has it been since you last smoked? 5-10 years Alcohol Screen (Audit-C) Question Answer Notes Did you have a drink containing alcohol in the p ast year? No Points 0 Interpretation Negative Problems Problem Type SNOMED Code ICD Code Onset Dates Problem Status W/U Status Risk Notes Problem Obstructive sleep apnea syndrome (39346310) JOVAN (obstructiv e sleep apnea) (G47.33) Active confirmed Encounters Encounter Location Date Provider Diagnosis [facility] [address] [phone] 01/19/2025 Provider Migration [facility] [address] [phone] 01/20/2025 Provider Migration Plan Of Treatment No Information Insurance Providers Payer Name Payer Address Payer Phone Subscriber Number Group Number Insured Name Patient Relationship to Insured Coverage Start Date Coverage End Date [employer] [address] [place] [address] [phone] [id number] Vaughn Tang Self - patient is the insured Medical (General) History Medical History History ICD Code Essential (primary) hypertension I10 Anxiety F41.9 Surgical History Surgery Date(Month/Year) stem cell surgery 2017 Lasic surgery tonsil removal surgery Hospitalization History Reason Date(Month/Year) severe stomach pain 2020
== END 2025-04-17 08:35 | disposition home or self-care (01) ==
LOC: HO.BBR 08:34
PROVIDERS: PCP Internal Medicine; Visit Provider Internal Medicine
DX: Z13.89 Encounter for screening for other disorder (principal)